=== PATIENT | female | born 1965 | race Caucasian/White ===

== ENCOUNTER → 2018-10-19 | Outpatient (CLI) | payer BC ==
[2018-10-19 13:19] VITALS: BP 111/74; PULSE 68; RESP 18; TEMP 98.4; BMI 26.2
--- NOTE | 2018-10-19 14:01 | P.GSHP ---
History of Present Illness H&P Date: 10/19/18 Chief Complaint: Lump right axilla Martina is a 52-year-old white female who presents for examination of the right axilla and breast. She had bilateral mammograms performed and July 2018 which revealed dense breast tissue BIRADS 2. Ultrasound of both breasts performed on the same day which again revealed dense heterogeneous echogenic tissue with a definite dominant mass or right unusual fluid collection. The recommendation was for repeat bilateral mammogram in one year. The nodularity is tender. It seems to fluctuate in size. She does not know what causes it it change in size. She has not had any fever or chills. She does not have any other enlarged nodes. She noticed this area because she was shaving under her arms. The patient drinks 1 pop per day. She additionally smokes at night. She is exposed to secondhand smoke. She is chocolate occasionally. Family History: none Hormonal history: menarche: 15 , breast fed: no, first born at 27 periods regular BCP: 5 years, tubal-ligation done 23 years ago hormones:none Surgical History: 1. tubal-ligation 2. knee arthroscopic Medial History: 1. rheumatoid arthritis Social History: smoke: at night alcohol: none drugs: none - Constitutional Constitutional: Denies chills, Denies fever - EENT Comment: wears glasses Eyes: denies blurred vision, denies pain Ears: deny: decreased hearing, tinnitus Ears, nose, mouth and throat: Denies headache, Denies sore throat - Breasts Breasts: bilateral: as per HPI - Cardiovascular Cardiovascular: Denies chest pain, Denies shortness of breath - Respiratory Respiratory: Denies cough, Denies 7 - Gastrointestinal Gastrointestinal: Denies abdominal pain, Denies diarrhea, Denies nausea, Denies vomiting - Genitourinary (Female) Genitourinary: Denies dysuria, Denies hematuria - Menstruation Comment: edilson-meopausal Menstruation: Reports period normal - Musculoskeletal Comment: arthritis - Integumentary Comment: inflamed node under right arm - Neurological Neurological: Denies numbness, Denies weakness - Psychiatric Psychiatric: Denies anxiety, Denies depression - Endocrine Endocrine: Reports weight change, Denies fatigue - Hematologic/Lymphatic Comment: none - Allergic/Immunologic Allergic/Immunologic: Reports as per HPI Past Medical History History of Any Multi-Drug Resistant Organisms: None Reported Smoking Status: Current some day smoker Medications and Allergies Home Medications Medication Instructions Recorded Confirmed Type No Known Home Medications 10/19/18 10/19/18 History Allergies Allergy/AdvReac Type Severity Reaction Status Date / Time codeine Allergy Rash/Hives Unverified 10/19/18 13:19 Penicillins Allergy Anaphylaxis Unverified 10/19/18 13:19 Surgical - Exam Vital Signs Temp Pulse Resp BP Pulse Ox 98.4 F 68 18 111/74 96 10/19/18 13:14 10/19/18 13:14 10/19/18 13:14 10/19/18 13:14 10/19/18 13:14 BMI 26.2 - General well developed, well nourished, no distress - Eyes normal ocular movement, no icteric - ENT no hearing loss, no congestion - Neck no masses, trachea midline - Respiratory normal respiratory effort, clear to auscultation - Cardiovascular Rhythm: regular Heart Sounds: normal: S1, S2 - Abdomen Abdomen: soft, non tender, no guarding, no rigid, no rebound - Integumentary inflamed area under right arm, no definite abscess, no area to drain at this time - Neurologic no disoriented, no combative - Musculoskeletal normal gait, normal posture - Psychiatric oriented to time, oriented to person, oriented to place, speech is normal, memory intact breast exam: right breast: Multi-positional exam very dense breast with fibrocystic changes no discrete dominant mass or nodule of concern Right axilla: In the hair follicles in the medial portion of the axillary line. Some increased tenderness with some palpable slight fullness just beneath the hair follicles I believe this is more related to an inflamed hair follicle/infection then adenopathy, no discrete adenopathy of concern appreciated Left breast: Multi-positional exam very dense breast with fibrocystic changes no discrete dominant mass or nodule is of concern Left axilla: No adenopathy of concern Results Mammogram and ultrasound reports from July 2018 reviewed Assessment and Plan Assessment: Impression: 1. Very dense breast 2. Fibrocystic breast changes 3. Right axillary folliculitis/fullness 4. Rheumatoid arthritis 5. ALLERGY penicillin and codeine 6. nicotine depndance Plan: 1. We will give the patient a trial of Bactrim and see the patient back in 1 week 2. Ultrasound of right axilla 3. Medical management of medical conditions 4. encouraged to stop smoking We will attempt a trial of Bactrim, if this does not resolve the situation with consider clindamycin. If the area persists and fullness may consider resection in the operating room. At this time we will get a ultrasound of the axilla to look for any deep adenopathy although none was palpable. I have encouraged the patient to stop smoking. C: Bunny
== END | disposition home or self-care (01) ==
LOC: WWCWWP 12:42
PROVIDERS: ATTEND Surgery
DX: Z53.9 Procedure and treatment not carried out, unspecified reason (principal)

== ENCOUNTER → 2018-10-24 | Outpatient (CLI) | payer BC ==
--- NOTE | 2018-10-25 08:27 | USB ---
Reason for exam: additional evaluation requested from abnormal screening. Physical Findings: Nurse Summary: Patient complains of right axilla lump x 5 months with intermittent pain (nurse mj). US Breast Workup Limited RT Right limited breast ultrasound including focal area of concern, retroareolar and axilla demonstrates a 0.8 x 0.9 x 0.3cm cystic lesion at 9 o'clock and a 1.0 x 1.1 x 0.6cm cystic lesion at 10 o'clock. No abnormality seen at axilla palpable. These results were verbally communicated with the patient and result sheet given to the patient on 10/24/18. ASSESSMENT: Benign, BI-RAD 2 RECOMMENDATION: Routine screening mammogram of both breasts in 10 months. Back on schedule for July 2019. Manage patient on a clinical basis.
== END ==
LOC: RADUSWWP 14:13
PROVIDERS: ATTEND Surgery
DX: R92.8 Other abnormal and inconclusive findings on diagnostic imaging of breast (principal)

== ENCOUNTER → 2018-10-27 | Outpatient (CLI) | payer BC ==
[2018-10-27 11:33] VITALS: BP 120/70; PULSE 66; RESP 16; TEMP 98.6; BMI 24.7
--- NOTE | 2018-10-27 11:53 | P.PN ---
Subjective Progress Note Date: 10/27/18 Martina is a 52-year-old white female who presents for examination of the right axilla and breast. She had bilateral mammograms performed July 2018 which revealed dense breast tissue BIRADS 2. Ultrasound of both breasts performed on the same day which again revealed dense heterogeneous echogenic tissue with no definite dominant mass or unusual fluid collection. The recommendation was for repeat bilateral mammogram in one year. The nodularity is tender. It seems to fluctuate in size. She does not know what causes it it change in size. She has not had any fever or chills. She does not have any other enlarged nodes. She noticed this area because she was shaving under her arms. The patient drinks 1 pop per day. She additionally smokes at night. She is exposed to secondhand smoke. She is chocolate occasionally. She was seen last week and startd on Bactrim. Ultrasound of the right axilla benign BIRAD 2, two cystic lesions in the breast. The area of concern under the right breast has resolved with Bactrim. She has no pain at this site now. There is very small area of nodularity. Family History: none Hormonal history: menarche: 15 , breast fed: no, first born at 27 periods regular BCP: 5 years, tubal-ligation done 23 years ago hormones:none Surgical History: 1. tubal-ligation 2. knee arthroscopic Medial History: 1. rheumatoid arthritis Social History: smoke: at night alcohol: none drugs: none - Constitutional Constitutional: Denies chills, Denies fever - EENT Comment: wears glasses Eyes: denies blurred vision, denies pain Ears: deny: decreased hearing, tinnitus Ears, nose, mouth and throat: Denies headache, Denies sore throat - Breasts Breasts: bilateral: as per HPI - Cardiovascular Cardiovascular: Denies chest pain, Denies shortness of breath - Respiratory Respiratory: Denies cough, Denies 7 - Gastrointestinal Gastrointestinal: Denies abdominal pain, Denies diarrhea, Denies nausea, Denies vomiting - Genitourinary (Female) Genitourinary: Denies dysuria, Denies hematuria - Menstruation Comment: edilson-meopausal Menstruation: Reports period normal - Musculoskeletal Comment: arthritis - Integumentary Comment: inflamed node under right arm - Neurological Neurological: Denies numbness, Denies weakness - Psychiatric Psychiatric: Denies anxiety, Denies depression - Endocrine Endocrine: Reports weight change, Denies fatigue - Hematologic/Lymphatic Comment: Objective - Vital Signs Vital signs: Vital Signs Temp 98.6 F 10/27/18 11:30 Pulse 66 10/27/18 11:30 Resp 16 10/27/18 11:30 BP 120/70 10/27/18 11:30 Pulse Ox 99 10/27/18 11:30 Intake & Output 10/26/18 10/27/18 10/27/18 18:59 06:59 18:59 Weight 63.503 kg - Exam BMI 24.8 - Constitutional General appearance: Present: average body habitus - EENT Eyes: Present: EOMI ENT: Present: hearing grossly normal - Respiratory Respiratory: bilateral: CTA - Cardiovascular Rhythm: regular Heart sounds: normal: S1, S2 - Integumentary Integumentary Comment(s): Right axilla: The area of tenderness has resolved and no palpable abnormality of concern is identified Assessment and Plan Assessment: Impression: 1. Ultrasound of right breast/axilla no lesions of concern 2. Very dense breast 3. Fibrocystic breast changes 4. Folliculitis seems to have resolved with antibiotic Area nicotine dependence 6. Rheumatoid arthritis 7. ALLERGY: Penicillin and codeine Plan: 1. The area of concern in the right axilla has resolved 2. Medical management of medical conditions 3. Continue to encourage to stop smoking 4. Patient due for bilateral mammogram in 10 months with physician exam at that time CC: DR. Gross
== END ==
LOC: WWCWWP 10:42
PROVIDERS: ATTEND Surgery
DX: Z53.9 Procedure and treatment not carried out, unspecified reason (principal)

== ENCOUNTER → 2019-08-27 | Outpatient (CLI) | payer BC ==
--- NOTE | 2019-08-29 09:24 | MM ---
Reason for exam: screening (asymptomatic). Last mammogram was performed 1 year ago. Physical Findings: A clinical breast exam by your physician is recommended on an annual basis and results should be correlated with mammographic findings. MG Screening Mammo w CAD Bilateral CC and MLO view(s) were taken. XCCL view(s) were taken of the left breast. Prior study comparison: August 16, 2018, mammogram, performed at [facility]. April 06, 2016, mammogram, performed at [facility]. The breast tissue is extremely dense which could obscure a lesion on mammography. Finding: There are increased, fine, grouped/clustered calcifications in the upper outer quadrant, middle position of the right breast. New finding since August 16, 2018 and April 06, 2016. ASSESSMENT: Incomplete: need additional imaging evaluation, BI-RAD 0 RECOMMENDATION: Special view mammogram of the right breast. [facility] will attempt to contact patient to return for supplemental views.
== END | disposition home or self-care (01) ==
LOC: RADMAMWWP 09:52
PROVIDERS: ATTEND Surgery
DX: Z12.31 Encounter for screening mammogram for malignant neoplasm of breast (principal)
CPT/HCPCS: 77067

== ENCOUNTER → 2019-08-31 | Outpatient (CLI) | payer BC ==
[2019-08-31 14:09] VITALS: BP 102/71; PULSE 64; RESP 18; TEMP 98
--- NOTE | 2019-08-31 14:42 | P.PN ---
Subjective Progress Note Date: 08/31/19 Principal diagnosis: abnormal mammogram right breast two sites 53-year-old white female who was initially seen in September 2018 with a complaint of some nodularity in the right axillary area. This has resolved. The patient had a bilateral mammogram performed on 7620. After the special views of the right [place] [address]. After review of these 2 areas of calcification were identified and stereotactic core biopsy of these 2 areas was recommended. The patient does not feel any lumps masses or nodules in her breasts. No nipple discharge. No recent history of trauma or infection in the breast. Caffeine: One pop per day Smoke: She smokes in the evening and is exposed to secondhand smoke Theophylline: Occasional Hormones: Negative Family History: none Hormonal history: menarche: 15 , breast fed: no, first born at 27 periods regular BCP: 5 years, tubal-ligation done 23 years ago hormones:none Surgical History: 1. tubal-ligation 2. knee arthroscopic Medial History: 1. rheumatoid arthritis Social History: smoke: at night alcohol: none drugs: none - Constitutional Constitutional: Denies chills, Denies fever - EENT Comment: wears glasses Eyes: denies blurred vision, denies pain Ears: deny: decreased hearing, tinnitus Ears, nose, mouth and throat: Denies headache, Denies sore throat - Breasts Breasts: bilateral: as per HPI - Cardiovascular Cardiovascular: Denies chest pain, Denies shortness of breath - Respiratory Respiratory: Denies cough, - Gastrointestinal Gastrointestinal: Denies abdominal pain, Denies diarrhea, Denies nausea, Denies vomiting - Genitourinary (Female) Genitourinary: Denies dysuria, Denies hematuria - Menstruation Comment: nlast menstral period two months ago Menstruation: Reports period normal - Musculoskeletal Comment: arthritis - Integumentary Comment: inflamed node under right arm resolved - Neurological Neurological: Denies numbness, Denies weakness - Psychiatric Psychiatric: Denies anxiety, Denies depression - Endocrine Endocrine: Reports weight change, Denies fatigue - Hematologic/Lymphatic Comment: none - Allergic/Immunologic Allergic/Immunologic: Reports as per HPI Objective - Vital Signs Vital signs: Vital Signs Temp 98.0 F 08/31/19 14:05 Pulse 64 08/31/19 14:05 Resp 18 08/31/19 14:05 BP 102/71 08/31/19 14:05 Pulse Ox 99 08/31/19 14:05 Intake & Output 08/30/19 08/31/19 08/31/19 18:59 06:59 18:59 Weight 65.771 kg - Constitutional General appearance: Present: average body habitus - EENT Eyes: Present: EOMI ENT: Present: hearing grossly normal - Neck Neck: Present: normal ROM - Respiratory Respiratory: bilateral: CTA - Cardiovascular Rhythm: regular Heart sounds: normal: S1, S2 - Gastrointestinal General gastrointestinal: Present: normal bowel sounds, soft - Integumentary Integumentary: Present: normal turgor - Musculoskeletal Musculoskeletal: Present: gait normal - Psychiatric Psychiatric: Present: A&O x's 3, appropriate affect, intact judgment & insight - Additional findings Additional findings: breast exam: BRA 36C inspection: ptosis grade 2/3 bilateral palpation: right breast: Multi-positional exam no dominant masses or nodules of concern, dense breast Right axilla: Shoddy adenopathy Left breast: Multi-positional exam no dominant masses or nodules of concern, dense breast Left axilla: No adenopathy of concern Assessment and Plan Assessment: Impression: 1. Fibrocystic breast changes 2. Right breast 2 areas of microcalcifications of concern 3. Resolved right axillary nodularity Plan: 1. Stereotactic core biopsy 2 areas of concern in the right breast Risk and benefits of procedure discussed with the patient she understands and wishes to proceed. Risks include but are not limited to bleeding, infection, reaction to the anesthetic. Additionally the possibility that the biopsy would be discordant would necessitate possible from biopsy in the operating room. Open biopsy in the operating room versus watchful waiting are discussed but not recommended. CC: DR. Bunny Chambers encounter 20 minutes, > 50% of time in planning and counselling
== END | disposition home or self-care (01) ==
LOC: WWCWWP 14:04
PROVIDERS: ATTEND Surgery
DX: Z53.9 Procedure and treatment not carried out, unspecified reason (principal)

== ENCOUNTER → 2019-08-31 | Outpatient (CLI) | payer BC ==
--- NOTE | 2019-09-03 08:01 | MM ---
Reason for exam: additional evaluation requested from abnormal screening. Last mammogram was performed less than 1 month ago. Physical Findings: Nurse did not find any significant physical abnormalities on exam. MG Work Up Mamm w CAD RT CC with magnification, ML with magnification, and ML view(s) were taken of the right breast. Prior study comparison: August 27, 2019, bilateral MG screening mammo w CAD. August 16, 2018, mammogram, performed at [facility]. The breast tissue is heterogeneously dense. This may lower the sensitivity of mammography. There are two groups of indeterminate calcifications upper outer right breast. These results were verbally communicated with the patient and result sheet given to the patient on 08/31/19. ASSESSMENT: Suspicious, BI-RAD 4 RECOMMENDATION: Stereotactic core biopsy of the right breast. (2 sites) Called office with mammographic findings and has scheduled an appointment for the patient for 08/31/19 at 2:[address] Montes. PRELIMINARY REPORT CALLED AND FAXED TO DR. MONTES ON 09/03/19.
== END | disposition home or self-care (01) ==
LOC: RADMAMWWP 13:02
PROVIDERS: ATTEND Surgery
DX: R92.8 Other abnormal and inconclusive findings on diagnostic imaging of breast (principal)
CPT/HCPCS: 77065

== ENCOUNTER → 2019-09-21 | Day surgery (SDC) | payer BC ==
[2019-09-21 07:31] VITALS: TEMP 98.1
--- NOTE | 2019-09-21 09:43 | P.PCN ---
Date of Procedure: 09/21/19 Preoperative Diagnosis: Mammographic abnormality right breast 2 lesions one anterior and one posterior calcifications of concern Postoperative Diagnosis: Same Procedure(s) Performed: Stereotactic core biopsy of 2 areas of concern in the right breast Anesthesia: local Surgeon: Keisha Montes Pathology: other (Breast tissue) Condition: stable Disposition: same day Indications for Procedure: Microcalcifications of concern at 2 sites in the right breast Operative Findings: Dense breast tissue specimens concordant with lesions Description of Procedure: The patient is a 53-year-old white female who on mammogram was noted to have 2 groups of indeterminate calcifications in the upper outer area of the right breast. Stereotactic core biopsy was recommended. It was felt that the posterior group should be addressed initially followed by the anterior group. Risk and benefits of the procedure were discussed with the patient and she wished to proceed. Risks include but are not limited to bleeding infection reaction to the anesthetic, inability to target the lesions are more that the lesions are not adequately sampled. She understood and wished to proceed. The patient was taken to stereotactic core biopsy room. She was placed on her abdomen on the low rad table. A staff training and development manager film was obtained. The lesions of concern were identified. The most posterior lesion was targeted initially. A CC from above approach was utilized. Both lesions were initially targeted. The most posterior lesion was approached first. The breast was prepped using Betadine. 12 mL of 1% lidocaine were used to anesthetize the area of concern. A 9-gauge vacuum-assisted core rotating biopsy needle was driven to the correct coordinates. The needle was fired. A post-fire film was obtained. The needle was felt to be too far to the right and the x coordinate was adjusted. Multiple core biopsies were obtained and radiograph of the specimen did not reveal the microcalcifications. The needle was withdrawn and a new apparatus was placed. Endoscope film was obtained. The posterior lesion was retargeted. The needle was driven to the correct location. Additional core biopsies were obtained. The area was lavaged. Radiograph of the specimen revealed the area of concern had been sampled. A secure ganesh marker was placed. Following this the anterior lesion was targeted. The skin was prepped using Betadine. An additional 12 mL of 1% lidocaine was used to anesthetize the area of concern. 9-gauge vacuum- assisted core rotating biopsy needle was driven to the correct coordinates. A prefire film was obtained and the needle appeared to be in the correct location. A post-fire film was then obtained after firing the needle. The needle appeared to be slightly to the right of the X location. A slight adjustment of X coordinate was performed. Multiple core biopsies were obtained. The area was lavaged. Radiograph of the specimen revealed that the lesion of concern had been sampled. To secure ganesh clips were placed for the anterior lesion. The patient tolerated the procedure in stable condition. The specimens were sent to pathology. Posterior lesion felt to be adequately sampled/radiograph showed calcifications/1 secure ganesh at this site Anterior lesion: Velarde to be adequately sampled/radiograph show calcifications/2 secure briones at this site The patient will follow-up with Dr. Zaidi next week. She tolerated the procedure in stable condition.
[2019-09-21 11:21] VITALS: BP 107/72; PULSE 56; RESP 56
--- NOTE | 2019-09-25 08:53 | MM ---
Stereotactic core biopsy right breast 2 cm. HISTORY: Microcalcifications. The calcifications in question within the right breast were targeted by the undersigned x2. The exam ination was performed by the surgeon. Specimen radiographs demonstrate numerous calcifications withi n the specimen submitted. Post procedural mammogram demonstrates appropriate deployment of radiopaqu e clip markers. The patient tolerated the procedure well and left the department in stable condition . Pathology results are pending. IMPRESSION: Successful stereotactic core biopsy right breast at 2 sites with pathology results pendin mely
== END ==
LOC: RADMAMWWP 07:08
PROVIDERS: ATTEND Surgery
DX: R92.1 Mammographic calcification found on diagnostic imaging of breast (principal); N60.11 Diffuse cystic mastopathy of right breast; N62 Hypertrophy of breast; R92.8 Other abnormal and inconclusive findings on diagnostic imaging of breast; Z88.5 Allergy status to narcotic agent; Z88.0 Allergy status to penicillin
CPT/HCPCS: 88305; 88342; 88341; 19081; 19082; A4648; J2001

== ENCOUNTER → 2019-09-28 | Outpatient (CLI) | payer BC ==
[2019-09-28 11:51] VITALS: BP 128/78; PULSE 75; RESP 18; TEMP 98.2
--- NOTE | 2019-09-28 12:11 | P.PN ---
Subjective Progress Note Date: 09/28/19 Principal diagnosis: Lobular carcinoma in situ Martina is a 53-year-old white female status post attempted to quit biopsy of 2 areas of concern in the right breast on 730 120. Biopsy of the anterior segment revealed lobular carcinoma in situ. The posterior site was benign. She is doing well. Objective - Vital Signs Vital signs: Vital Signs Temp 98.2 F 09/28/19 11:47 Pulse 75 09/28/19 11:47 Resp 18 09/28/19 11:47 BP 128/78 09/28/19 11:47 Pulse Ox 97 09/28/19 11:47 Intake & Output 09/27/19 09/28/19 09/28/19 18:59 06:59 18:59 Weight 65.771 kg - Exam BMI 25.7 - Constitutional General appearance: Present: average body habitus - EENT Eyes: Present: EOMI ENT: Present: hearing grossly normal - Neck Neck: Present: normal ROM - Respiratory Respiratory: bilateral: CTA - Cardiovascular Rhythm: regular Heart sounds: normal: S1, S2 - Gastrointestinal General gastrointestinal: Present: normal bowel sounds, soft - Integumentary Integumentary: Present: normal turgor - Musculoskeletal Musculoskeletal: Present: gait normal - Psychiatric Psychiatric: Present: A&O x's 3, appropriate affect, intact judgment & insight - Additional findings Additional findings: Right breast biopsy site: Evidence of infection or hematoma Mild ecchymosis Assessment and Plan Assessment: Impression: 1. Patient status post attempted core biopsy right breast in 2 sites, the posterior site is benign fibrocystic disease the anterior site is ALH/LCIS Plan: 1. Needle local excisional biopsy of the anterior stereotactic core biopsy site. The procedure will be via needle localization, probable crescent mastopexy, onco-plastic tissue transfer CC: DR. Gross encounter 25 minutes, > 50% of time in planning and counselling
== END | disposition home or self-care (01) ==
LOC: WWCWWP 11:40
PROVIDERS: ATTEND Surgery
DX: Z53.9 Procedure and treatment not carried out, unspecified reason (principal)

== ENCOUNTER → 2019-11-22 | Outpatient (CLI) | payer BC ==
[2019-11-22 09:10] VITALS: BP 114/75; PULSE 83; RESP 18; TEMP 98.1
--- NOTE | 2019-11-22 09:29 | P.GSHP ---
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 This has resolved. The patient had a bilateral mammogram performed on 7620. After the special views of the right [place] [address]. After review of these 2 areas of calcification were identified and stereotactic core biopsy of these 2 areas was recommended. The patient does not feel any lumps masses or nodules in her breasts. No nipple discharge. No recent history of trauma or infection in the breast. She underwent stereotactic core biopsy of 2 areas of concern in the right breast and [id number]. The posterior site revealed benign fibrocystic changes. The anterior site revealed lobular neoplasia, ALH/LCIS. It has been recommended that she undergo needle localization and excisional lumpectomy of the anterior site. Did not have any complaints following the stereotactic core biopsy. Caffeine: One pop per day Smoke: She smokes in the evening and is exposed to secondhand smoke Theophylline: Occasional Hormones: Negative Family History: none Hormonal history: menarche: 15 , breast fed: no, first born at 27 periods regular BCP: 5 years, tubal-ligation done 23 years ago hormones:none Surgical History: 1. tubal-ligation 2. knee arthroscopic Medial History: 1. rheumatoid arthritis Social History: smoke: at night alcohol: none drugs: none - Constitutional Constitutional: Denies chills, Denies fever - EENT Comment: wears glasses Eyes: denies blurred vision, denies pain Ears: deny: decreased hearing, tinnitus Ears, nose, mouth and throat: Denies headache, Denies sore throat - Breasts Breasts: bilateral: as per HPI - Cardiovascular Cardiovascular: Denies chest pain, Denies shortness of breath - Respiratory Respiratory: Denies cough, Denies 7 - Gastrointestinal Gastrointestinal: Denies abdominal pain, Denies diarrhea, Denies nausea, Denies vomiting - Genitourinary (Female) Genitourinary: Denies dysuria, Denies hematuria - Menstruation Menstruation: Reports postmenopausal - Musculoskeletal Comment: arthritis - Integumentary Integumentary: Denies pruritus, Denies rash - Neurological Neurological: Denies numbness, Denies weakness - Psychiatric Psychiatric: Denies anxiety, Denies depression - Endocrine Endocrine: Denies fatigue, Denies weight change - Hematologic/Lymphatic Comment: none - Allergic/Immunologic Allergic/Immunologic: Reports as per HPI Past Medical History Past Medical History: Rheumatoid Arthritis (RA) History of Any Multi-Drug Resistant Organisms: None Reported Past Surgical History: Orthopedic Surgery, Tubal Ligation Additional Past Surgical History / Comment(s): bilateral knee arthroscopy Past Anesthesia/Blood Transfusion Reactions: No Reported Reaction Past Psychological History: No Psychological Hx Reported Smoking Status: Current some day smoker Past Alcohol Use History: None Reported Past Drug Use History: None Reported Medications and Allergies Home Medications Medication Instructions Recorded Confirmed Type Multivit with Calcium,Iron,Min 1 each PO QAM 09/27/19 11/22/19 History [Women's Multivitamin] Allergies Allergy/AdvReac Type Severity Reaction Status Date / Time codeine Allergy Rash/Hives Unverified 11/22/19 09:10 Penicillins Allergy Anaphylaxis Unverified 11/22/19 09:10 Surgical - Exam Vital Signs Temp Pulse Resp BP Pulse Ox 98.1 F 83 18 114/75 97 11/22/19 09:07 11/22/19 09:07 11/22/19 09:07 11/22/19 09:07 11/22/19 09:07 BMI 26 - General well developed, well nourished, no distress - Eyes normal ocular movement - ENT no hearing loss, no congestion - Neck no masses, trachea midline - Respiratory normal respiratory effort, clear to auscultation - Cardiovascular Rhythm: regular Heart Sounds: normal: S1, S2 - Abdomen Abdomen: soft, non tender, no guarding, no rigid, no rebound - Integumentary normal turgor - Neurologic no disoriented, no combative - Musculoskeletal normal gait, normal posture - Psychiatric oriented to time, oriented to person, oriented to place, speech is normal, memory intact Breast exam: Bra: 34C inspection:grade 3 ptosis bilateral palpation: right breast: Multi-positional exam well-healed scars from prior stereo biopsy, no dominant masses or nodules of concern, fibrocystic changes Right axilla: No adenopathy of concern Left breast: Multiple positional exam fibrocystic changes, no dominant masses or nodules of concern Left axilla: No adenopathy of concern Results Bilateral mammogram and pathology results reviewed Assessment and Plan Assessment: Impression: 1. Fibrocystic breast changes 2. LCIS right breast anterior biopsy site 3. History of arthritis Plan: 1. Right breast needle localization lumpectomy of anterior stereotactic core biopsy site, possible mastopexy, possible onco plastic tissue transfer, any indicated procedures Risks and benefits of the procedure discussed with the patient and she understands and wishes to proceed. Cc: Dr. Hollis encounter 30 minutes, > 50% of time in planning and counselling
== END | disposition home or self-care (01) ==
LOC: WWCWWP 09:00
PROVIDERS: ATTEND Surgery
DX: Z53.9 Procedure and treatment not carried out, unspecified reason (principal)

== ENCOUNTER 2019-11-27 10:37 | Day surgery (SDC) | payer BC ==
[~2019-11-27 10:37] MED LIST: DEXAMETHASONE SOD PHOSPHATE 10 MG/ML 1 ML VIAL IV ONE; HEPARIN SODIUM,PORCINE 5,000 UNIT/ML 1 ML VIAL SQ ONE; LACTATED RINGERS 1,000 ML IV SCH; MIDAZOLAM 2 MG/2 ML VIAL IV PRN; ONDANSETRON 4 MG/2 ML VIAL IVP ONE; Pre Op ABX Message 1 EACH MISC MISCELLANE ONE; SCOPOLAMINE 1.5MG/72HR PATCH TRANSDERM ONE
[2019-11-27] MEDS ORDERED: LIDOCAINE 1% (10MG/ML) FOR IV START INTRADERMA ONE (11:09)
[2019-11-27] MEDS ORDERED: ALPRAZolam 0.5 MG TAB ONE (11:12)
[2019-11-27] MEDS ORDERED: ALPRAZolam 0.5 MG TAB PO ONE (11:14)
[2019-11-27] MEDS ORDERED: LIDOCAINE 1% INJ 10MG/ML (20 ML MDV) SQ ONE (11:35)
[2019-11-27] MEDS ORDERED: PROPOFOL 10 MG/ML 20 ML VIAL IV ONE (16:44)
[2019-11-27] MEDS ORDERED: MIDAZOLAM 2 MG/2 ML VIAL ONE (16:44)
[2019-11-27] MEDS ORDERED: LIDOCAINE 1% INJ 10MG/ML (20 ML MDV) ONE (16:44)
[2019-11-27] MEDS ORDERED: fentaNYL (PF) 50 MCG/ML 2 ML AMP ONE (16:44)
[2019-11-27] MEDS ORDERED: SUCCINYLCHOLINE CHLORIDE 100 MG/5 ML SYR IV ONE (16:44)
--- NOTE | 2019-11-27 17:50 | P.OP ---
Date of Procedure: 11/27/19 Preoperative Diagnosis: Breast right at 12:00 stereotactic core biopsy lesion atypical lobular hyperplasia/lobular carcinoma in situ Postoperative Diagnosis: Same Procedure(s) Performed: needle Localization lumpectomy, crescent mastopexy, oncho plastic tissue transfer Anesthesia: GETA Surgeon: Keisha Montes Estimated Blood Loss (ml): 5 IV fluids (ml): 850 Pathology: other (Dense breast tissue) Condition: stable Disposition: same day Indications for Procedure: core Biopsy with lobular carcinoma in situ Operative Findings: Dense breast tissue Description of Procedure: The patient is a 54-year-old white female who underwent a stereotactic core biopsy of the right breast. The anterior lesion revealed lobular carcinoma in situ and atypical lobular hyperplasia. She was recommended to undergo a needle local excisional lumpectomy. Following needle localization of the area of concern in the right breast the patient was marked in the preoperative area for the incision for removal which was a crescent mastopexy incision. She is brought to the operating room and following induction of anesthesia the right breast was prepped and draped in a sterile fashion. The area which had been m arked in the preoperative area was again delineated. The apex of the crescent was approximately 1-1/2 cm above the areolar. The skin in this area was de- epithelialized. The breast parenchyma was entered. The was identified and circumferential dissection of the tissue around the needle was performed. The specimen was painted for orientation. The wound was evaluated for hemostasis. After assured that hemostasis was attained medial and lateral pillars were free. The medial portal was approximately 7 x 4 cm which was 28 cm and the lateral pillar was approximately 6 x 4 cm which was 24 cm. Anterolateral 52 cm was freed. After assured that hemostasis was attained the 2 pillars were brought together using 3-0 Vicryl suture. The broad of the biopsy cavity was marked using titanium clips. One clip was medial and 3 clips superiorly. Following this the subcutaneous tissue was closed with 3-0 Vicryl suture. This is followed by 4-0 subcuticular 4-0 Ethibond suture and a 4-0 nylon skin suture. All instrument and sponge counts were correct at the end of the case. Patient tolerated the procedure in stable condition.
--- NOTE | 2019-11-27 17:54 | P.DS ---
Providers Attending physician: Keisha Montes Primary care physician: Lupe Gross Plan - Discharge Summary Discharge Rx Participant: No New Discharge Prescriptions: No Action Multivit with Calcium,Iron,Min [Women's Multivitamin] 1 each PO QAM Discharge Medication List Multivit with Calcium,Iron,Min [Women's Multivitamin] 1 each PO QAM 09/27/19 [History] Follow up Appointment(s)/Referral(s): Keisha Montes MD [STAFF PHYSICIAN] - 1 Week Activity/Diet/Wound Care/Special Instructions: Prescription for Gonvick given to in pre-op who will fill downstairs at pharmacy while patient in surgery, this is cancelled secondary to codeine allergy Discharge Disposition: HOME SELF-CARE
[2019-11-27] MEDS ORDERED: LACTATED RINGERS 1,000 ML IV ONE ×2 (18:30)
[2019-11-27] MEDS: fentaNYL (PF) 50 MCG/ML 2 ML AMP IV PRN ×2 (18:31→18:54)
[2019-11-27 19:08] VITALS: RESP 16
[2019-11-27 21:14] VITALS: BP 124/71; PULSE 97; TEMP 98
--- NOTE | 2019-11-28 08:18 | MM ---
EXAMINATION TYPE: MG pre op needle loc RT, MG surgical specimen RT DATE OF EXAM: 11/27/2019 COMPARISON: Prior mammograms September 21, 2019 and older studies. CLINICAL HISTORY: Recent High risk biopsy with ALH/LCIS. TECHNIQUE: Needle localization with wire placement and surgical excision of area of concern in the right breast. FINDINGS: The procedure of needle localization with wire placement and than surgical excision was explained to the patient. Benefits, alternatives, and risks were discussed. An informed consent was then obtained. Exam is reviewed. More anterior clip corresponds to area of concern on pathology. The shortest pathway for procedure was chosen. Shortest pathway was lateral approach. The overlying skin was prepped and draped in usual sterile fashion. Lidocaine is used as anesthetic into the skin and subcutaneous tissue up to the level of area of concern. A 7 cm needle was used. It was placed via a lateral approach under mammographic guidance. Subsequent 90 degrees mammogram show the needle to be in satisfactory position relative to the targeted area. At this point, wire was placed and the needle was withdrawn. The wire was fixed to patient's skin. Images were marked for surgeon. The patient tolerated the procedure well without any immediate complication. The patient was kept in the radiology department for short stay after the procedure and then taken to surgery for surgical excision. Targeted clip and wire are identified in specimen mammogram. The patient was kept in hospital for short stay after the procedure and then discharged home in stable condition. The nontargeted clip also seen in periphery of specimen. IMPRESSION: Successful, uncomplicated needle localization with wire placement and surgical excision of targeted clip in the right breast, full pathology results to follow. Pathology Results: Malignant RIGHT BREAST, LUMPECTOMY: Duct carcinoma in situ, intermediate grade less than 2 mm away from the black inked margin of resection in multiple portions of the specimen. Surrounding breast parenchyma: Fibrocystic spectrum changes with prior biopsy artifact. See note. Recommendation Surgical consult of the right breast. [place]
== END 2019-11-27 21:00 | disposition home or self-care (01) ==
LOC: OR 10:37 → 1SOBS 18:47 → OR 21:00
PROVIDERS: ATTEND Surgery
DX: D05.11 Intraductal carcinoma in situ of right breast (principal); N60.11 Diffuse cystic mastopathy of right breast; M06.9 Rheumatoid arthritis, unspecified; F17.210 Nicotine dependence, cigarettes, uncomplicated; Z88.5 Allergy status to narcotic agent; Z88.0 Allergy status to penicillin; Z98.51 Tubal ligation status; Z98.890 Other specified postprocedural states
CPT/HCPCS: 19301; 81025; 88342; 88307; 88341; 76098; 19281; J2250; J1644; J1100; J2405; J2001; J3010; J0330; J2704

== ENCOUNTER → 2019-12-06 | Outpatient (CLI) | payer BC ==
[2019-12-06 16:20] VITALS: BP 108/73; PULSE 67; RESP 12; TEMP 98.1
--- NOTE | 2019-12-06 16:26 | P.PN ---
Progress Note - Text Progress Note Date: 12/06/19 Martina is a 54 -year-old female who underwent a right breast needle local excisional lumpectomy for an area of atypical lobular hyperplasia. Pathology came back as ductal carcinoma in situ which was less than 2 mm away from the black inked margin of resection and multiple portions of the specimen. This was the superior margin. Patient has done well postoperatively. The lesion is ER/NH positive physical exam: Lungs: Clear Heart: Regular rate and rhythm Incision: Clean and dry Impression: 1. Excisional biopsy positive for DCIS, less than 2 mm from black inked margin of resection of multiple portions of the specimen Plan: 1. Reexcision of superior margin 2. Appointment with radiation oncology and medical oncology 2. Present case at tumor board CC: Dr. Gross
== END | disposition home or self-care (01) ==
LOC: WWCWWP 15:52
PROVIDERS: ATTEND Surgery
DX: Z53.9 Procedure and treatment not carried out, unspecified reason (principal)

== ENCOUNTER 2019-12-25 06:21 | Day surgery (SDC) | payer BC ==
--- NOTE | 2019-12-21 08:42 | P.PN ---
Subjective Progress Note Date: 12/21/19 Principal diagnosis: Ductal carcinoma in situ right breast Martina is a 53-year-old white female who was initially seen in September 2018 with a complaint of some nodularity in the right axillary area. This has resolved. The patient had a bilateral mammogram performed on 7620. After the special views of the right [place] [address]. After review of these 2 areas of calcification were identified and stereotactic core biopsy of these 2 areas was recommended. The patient does not feel any lumps masses or nodules in her breasts. No nipple discharge. No recent history of trauma or infection in the breast. She underwent stereotactic core biopsy of 2 areas of concern in the right breast and [id number]. The posterior site revealed benign fibrocystic changes. The anterior site revealed lobular neoplasia, ALH/LCIS. It has been recommended that she undergo needle localization and excisional lumpectomy of the anterior site. Did not have any complaints following the stereotactic core biopsy. She underwent needle localization and excisional biopsy for the area of atypical lobular hyperplasia. Pathology returned as ductal carcinoma in situ which was less than 2 mm from the superior resection margin. This was noted in multiple portions of the specimen. Although the margin was negative it was very close. The case was presented at tumor Board and she was seen by radiation oncology. Recommendation was for repeat excision of the superior margin. Additionally we discussed the possibility of an invasive component and the patient wished to undergo a sentinel node biopsy. Caffeine: One pop per day Smoke: She smokes in the evening and is exposed to secondhand smoke Theophylline: Occasional Hormones: Negative Family History: none Hormonal history: menarche: 15 , breast fed: no, first born at 27 periods regular BCP: 5 years, tubal-ligation done 23 years ago hormones:none Surgical History: 1. tubal-ligation 2. knee arthroscopic Medial History: 1. rheumatoid arthritis Social History: smoke: at night alcohol: none drugs: none - Constitutional Constitutional: Denies chills, Denies fever - EENT Comment: wears glasses Eyes: denies blurred vision, denies pain Ears: deny: decreased hearing, tinnitus Ears, nose, mouth and throat: Denies headache, Denies sore throat - Breasts Breasts: bilateral: as per HPI - Cardiovascular Cardiovascular: Denies chest pain, Denies shortness of breath - Respiratory Respiratory: Denies cough, - Gastrointestinal Gastrointestinal: Denies abdominal pain, Denies diarrhea, Denies nausea, Denies vomiting - Genitourinary (Female) Genitourinary: Denies dysuria, Denies hematuria - Menstruation Menstruation: Reports postmenopausal - Musculoskeletal Comment: arthritis - Integumentary Integumentary: Denies pruritus, Denies rash - Neurological Neurological: Denies numbness, Denies weakness - Psychiatric Psychiatric: Denies anxiety, Denies depression - Endocrine Endocrine: Denies fatigue, Denies weight change - Hematologic/Lymphatic Comment: none - Allergic/Immunologic Allergic/Immunologic: Reports as per HPI Objective - Constitutional General appearance: Present: average body habitus - EENT Eyes: Present: EOMI ENT: Present: hearing grossly normal - Neck Neck: Present: normal ROM - Respiratory Respiratory: bilateral: CTA - Cardiovascular Rhythm: regular Heart sounds: normal: S1, S2 - Gastrointestinal General gastrointestinal: Present: soft - Integumentary Integumentary Comment(s): Incision: Clean and dry Integumentary: Present: normal turgor - Musculoskeletal Musculoskeletal: Present: gait normal - Psychiatric Psychiatric: Present: A&O x's 3, appropriate affect, intact judgment & insight Assessment and Plan Assessment: Impression: 1. Excisional biopsy right breast positive for DCIS less than 2 mm from black inked margin of resection of multiple portions of the specimen Plan: 1. Reexcision of superior margin 2. Poteet node injection, sentinel node biopsy, possible axillary node dissection Risk and benefits of the procedure were discussed with the patient. She understands that this may not be any residual tumor however with multiple sites showing very close proximity to the superior margin and after presentation at tumor board has been recommended reexcision be performed. We also discussed sentinel node biopsy and secondary to the multiple sites she wishes sentinel node biopsy to be performed. Risks include but are not limited to bleeding, infection, reaction to the anesthetic. She understands this margin toward to be positive she may need additional surgery. CC: Dr. Gross
[2019-12-24 10:11] VITALS: BMI 25.8
[~2019-12-25 06:21] MED LIST changes: -DEXAMETHASONE SOD PHOSPHATE 10 MG/ML 1 ML VIAL IV ONE; +DEXAMETHASONE SOD PHOSPHATE 4 MG/ML 1 ML VIAL IV ONE; +fentaNYL (PF) 50 MCG/ML 2 ML AMP IV PRN
[2019-12-25] MEDS ORDERED: LIDOCAINE 1% (10MG/ML) FOR IV START INTRADERMA ONE (07:00)
[2019-12-25] MEDS ORDERED: ALPRAZolam 0.5 MG TAB ONE (07:05)
[2019-12-25] MEDS ORDERED: ALPRAZolam 0.5 MG TAB PO ONE (07:06)
[2019-12-25] MEDS ORDERED: PROPOFOL 10 MG/ML 20 ML VIAL IV ONE (08:19)
[2019-12-25] MEDS ORDERED: fentaNYL (PF) 50 MCG/ML 2 ML AMP ONE (08:19)
[2019-12-25] MEDS ORDERED: MIDAZOLAM 2 MG/2 ML VIAL ONE (08:19)
[2019-12-25] MEDS ORDERED: KETOROLAC 15 MG/ML 1 ML VIAL ONE (08:19)
[2019-12-25] MEDS ORDERED: ePHEDrine SULFATE/0.9% NACL/PF 50 MG/5 ML SYRINGE IV ONE (08:19)
[2019-12-25] MEDS ORDERED: PHENYLEPHRINE-0.9% NACL SYG 1 MG/10 ML SYRINGE ONE (08:19)
[2019-12-25] MEDS ORDERED: SUCCINYLCHOLINE CHLORIDE 100 MG/5 ML SYR IV ONE (08:19)
[2019-12-25] MEDS ORDERED: LIDOCAINE 1% INJ 10MG/ML (20 ML MDV) ONE (08:19)
--- NOTE | 2019-12-25 08:35 | NM ---
EXAMINATION TYPE: NM sentinel node injection DATE OF EXAM: 12/25/2019 COMPARISON: 11/27/2019 HISTORY: 54-year-old female right breast cancer, scheduled for reexcision of the superior margin. TECHNIQUE AND FINDINGS: The procedure of sentinel lymph node injection was explained to the patient. The benefits, alternatives, and risks were discussed. An informed consent was then obtained. Overlying skin is cleaned with sterile alcohol. Following this, 553 uCi Tc99m Tilmanocept was inject ed in the upper outer aspect of the right nipple intradermally. The patient tolerated the procedure well without any immediate complication. The patient was kept in the radiology department for short stay after the procedure and then taken to surgery for surgical p rocedure what is presumed intraoperative gamma probe will be used for sentinel lymph node detection. IMPRESSION: Right breast radiotracer injection for sentinel node localization as above.
--- NOTE | 2019-12-25 08:54 | P.NAPBC ---
NAPBC Queries - NAPBC Queries Was patient's case review presented at [facility] tumor board? If no, comment.: Yes Was patient's pathology reviewed at [facility]? If no, comment.: Yes Was breast conservation surgery offered? If no, comment.: Yes Was sentinel node biopsy offered? If no, comment.: Yes Was diagnosis confirmed by percutaneous core biopsy? If no, comment.: No (biopsy of atypia on core lead to diagnosis) Is patient mastectomy patient?: No Was a preop referral to reconstructive surgeon offered?: No Clinical Stage: stage 0
--- NOTE | 2019-12-25 10:21 | P.OP ---
Date of Procedure: 12/25/19 Preoperative Diagnosis: Ductal carcinoma in situ with multiple areas less than 2 mm from the superior margin of lumpectomy cavity Postoperative Diagnosis: Same Procedure(s) Performed: [place] node biopsy, reexcision of superior margin of lumpectomy cavity Anesthesia: AMISHAA Surgeon: Keisha Montes Estimated Blood Loss (ml): 10 IV fluids (ml): 700 Pathology: other (Be[place] lymph node, breast tissue) Condition: stable Disposition: same day Indications for Procedure: Needle localization partial mastectomy for atypia which revealed ductal carcinoma in situ with close margins at the superior aspect Operative Findings: Dense breast tissue Description of Procedure: Martina is a 54-year-old patient female who underwent a needle localization partial mastectomy for atypia. The pathology revealed ductal carcinoma in situ with multiple areas less than 2 mm from the superior margin. Her case was presented at tumor Board and it was recommended she undergo reexcision of the superior margin. Additionally secondary to the multifocal nature sentinel node biopsy was discussed with the patient and she wished this to be performed in the event that there should be an invasive component identified. The patient was brought to the operating room and the axilla was interrogated. Lymphokine had been injected by radiology. The area was noted to be radioactive and following this the breast and axilla were prepped and draped in a sterile fashion. An incision was made in the axilla and carried down to the area of increased radioactivity. This was a axillary lymph node. Using the Harmonic scalpel this lymph node was excised. The 10 second count on the lymph node was 17,275 and the background count was 18. After assured that hemostasis was attained, the deep tissues were closed using 3-0 Vicryl suture. This was followed by closure of the skin with a 4-0 Monocryl. Following this the area of the breast was approached. The prior crescent mastopexy incision was reopened. This was followed superiorly to the area where the cavity had been resected and the tissue closed. A small cavity was noted and this area was opened. The carlos had been placed superiorly 1-year-old and these were identified. The superior aspect of the cavity was reexcised. A portion of tissue was removed from the medial aspect of the cavity removing the carlos from this area as well. Patient was examined for hemostasis. After assured that hemostasis was attained Surgicel and pelvis on was placed. Two titanium clips were placed superiorly and one medial. The specimen was painted for hemostasis. The cavity which was reexcised was approximately 5 cm x 2 cm. The deep tissues were closed using 3-0 Vicryl suture. This is followed by closure of the subcutaneous tissue with 3-0 Vicryl suture and closure of the skin with a 4-0 Monocryl followed by 4-0 nylon suture. The patient tolerated procedure in stable condition. All instrument and sponge counts were correct at the end of the case.
--- NOTE | 2019-12-25 10:24 | P.DS ---
Providers Attending physician: Keisha Montes Primary care physician: Lupe Gross Plan - Discharge Summary Discharge Rx Participant: Yes New Discharge Prescriptions: No Action Multivit with Calcium,Iron,Min [Women's Multivitamin] 1 each PO QAM Discharge Medication List Multivit with Calcium,Iron,Min [Women's Multivitamin] 1 each PO QAM 09/27/19 [History] Follow up Appointment(s)/Referral(s): Keisha Montes MD [STAFF PHYSICIAN] - 1 Week Patient Instructions/Handouts: *Surgery [facility] - Scopalamine Patch Instructions Activity/Diet/Wound Care/Special Instructions: do not drive for 24 hours after discharge may shower after 48 hours wear bra at all times Discharge Disposition: HOME SELF-CARE
[2019-12-25] MEDS ORDERED: LACTATED RINGERS 1,000 ML IV ONE (10:27)
[2019-12-25 10:40] VITALS: TEMP 97.1
[2019-12-25 11:24] VITALS: RESP 18
[2019-12-25] MEDS ORDERED: HYDROcodone/APAP 5-325MG 1 EACH TAB ONE (11:41)
[2019-12-25] MEDS ORDERED: HYDROcodone/APAP 5-325MG 1 EACH TAB PO ONE (11:47)
[2019-12-25 11:53] VITALS: BP 103/57; PULSE 77
== END 2019-12-25 12:39 | disposition home or self-care (01) ==
LOC: OR 06:21
PROVIDERS: ATTEND Surgery
DX: N60.11 Diffuse cystic mastopathy of right breast (principal); N60.91 Unspecified benign mammary dysplasia of right breast; C50.911 Malignant neoplasm of unspecified site of right female breast; F17.210 Nicotine dependence, cigarettes, uncomplicated; Z77.22 Contact with and (suspected) exposure to environmental tobacco smoke (acute) (chronic); M06.9 Rheumatoid arthritis, unspecified; K21.9 Gastro-esophageal reflux disease without esophagitis; Z98.51 Tubal ligation status; Z98.890 Other specified postprocedural states; Z88.5 Allergy status to narcotic agent; Z88.0 Allergy status to penicillin
CPT/HCPCS: 19301; 38525; 81025; 88342; 88307; 88341; 38792; A9520; J2250; J1644; J1100; J2405; J2001; J3010; J1885; J2370; J0330; J2704

== ENCOUNTER → 2020-01-04 | Outpatient (CLI) | payer BC ==
[2020-01-04 14:31] VITALS: BP 113/72; PULSE 81; RESP 18
--- NOTE | 2020-01-04 14:35 | P.PN ---
Progress Note - Text Progress Note Date: 01/04/20 Martina is a 54-year-old white female status post right breast lumpectomy on which revealed DCIS close to the superior margin of resection. She therefore underwent reexcision on . On reexcision of the DCIS was noted. She also had a sentinel node biopsy performed. Pierce node was negative for metastatic disease. The patient is doing well post procedure without complaints. Physical exam: Incision axilla clean and dry Incision periareolar region clean and dry Impression: 1. DCIS completely excised 2. Patient doing well postop Plan: 1. Follow-up radiation oncology 2. Follow-up medical oncology 3. Follow. In 3 months CC: Dr. Gross
== END | disposition home or self-care (01) ==
LOC: WWCWWP 14:12
PROVIDERS: ATTEND Surgery
DX: Z53.9 Procedure and treatment not carried out, unspecified reason (principal)

== ENCOUNTER → 2020-04-10 | Outpatient (CLI) | payer BC ==
[2020-04-10 15:45] VITALS: BP 125/77; PULSE 67; RESP 18; TEMP 98
--- NOTE | 2020-04-10 15:56 | P.PN ---
Subjective Progress Note Date: 04/10/20 Principal diagnosis: Stage 0 right breast cancer Martina is a 54-year-old white female who was initially seen in September 2018 with a complaint of some nodularity in the right axillary area. This resolved. The patient had a bilateral mammogram performed on 7620. Special views of the right [place] [address]. After review of these 2 areas of calcification were identified and stereotactic core biopsy of these 2 areas was recommended. The patient did not feel any lumps masses or nodules in her breasts. No nipple discharge. No recent history of trauma or infection in the breast. She underwent stereotactic core biopsy of 2 areas of concern in the right breast and [address]. The posterior site revealed benign fibrocystic changes. The anterior site revealed lobular neoplasia, ALH/LCIS. It has been recommended that she undergo needle localization and excisional lumpectomy of the anterior site. Did not have any complaints following the stereotactic core biopsy. The initial needle local resection was done on . [place] [address] underwent a reexcision and a sentinel node biopsy. Pathology at that time revealed no further DCIS but some atypia on the medial reexcision margin. A sentinel node biopsy was also removed which was negative for cancer. She did complete a course of radiation therapy. This was completed on 03/12/20. She was given a prescription for an anti estrogen agent, the patient has not started this yet. She does not feel any lumps masses or nodules of concern in either breast. She is concerned about the fact that her right nipple areolar complex are higher than her left nipple areolar complex, it is difficult for her to find close to fit correctly. 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 Caffeine: One pop per day Smoke: She smokes in the evening and is exposed to secondhand smoke Theophylline: Occasional Hormones: Negative Family History: none Hormonal history: menarche: 15 , breast fed: no, first born at 27 periods regular BCP: 5 years, tubal-ligation done 23 years ago hormones:none Surgical History: 1. tubal-ligation 2. knee arthroscopic Medial History: 1. rheumatoid arthritis Social History: smoke: at night alcohol: none drugs: none - Constitutional Constitutional: Denies chills, Denies fever - EENT Comment: wears glasses Eyes: denies blurred vision, denies pain Ears: deny: decreased hearing, tinnitus Ears, nose, mouth and throat: Denies headache, Denies sore throat - Breasts Breasts: bilateral: as per HPI - Cardiovascular Cardiovascular: Denies chest pain, Denies shortness of breath - Respiratory Respiratory: Denies cough - Gastrointestinal Gastrointestinal: Denies abdominal pain, Denies diarrhea, Denies nausea, Denies vomiting - Genitourinary (Female) Genitourinary: Denies dysuria, Denies hematuria - Menstruation Menstruation: Reports postmenopausal - Musculoskeletal Comment: arthritis - Integumentary Integumentary: Denies pruritus, Denies rash - Neurological Neurological: Denies numbness, Denies weakness - Psychiatric Psychiatric: Denies anxiety, Denies depression - Endocrine Endocrine: Denies fatigue, Denies weight change - Hematologic/Lymphatic Comment: none - Allergic/Immunologic Allergic/Immunologic: Reports as per HPI Objective - Exam BMI 26.2 - Constitutional General appearance: Present: average body habitus - EENT Eyes: Present: EOMI ENT: Present: hearing grossly normal - Neck Neck: Present: normal ROM - Respiratory Respiratory: bilateral: CTA - Cardiovascular Rhythm: regular Heart sounds: normal: S1, S2 - Gastrointestinal General gastrointestinal: Present: normal bowel sounds, soft - Integumentary Integumentary: Present: normal turgor - Musculoskeletal Musculoskeletal: Present: gait normal - Psychiatric Psychiatric: Present: A&O x's 3, appropriate affect - Additional findings Additional findings: breast: BRA: medium sports bra inspection: Asymmetry of the breast related to prior right breast lumpectomy, right nipple complex grade 2 ptosis left nipple complex grade 3 ptosis Palpation: Right breast: Radiation changes dense breast tissue no discrete dominant masses or nodules of concern Right axilla: No adenopathy of concern Left breast: Multi-positional exam increased nodularity upper outer quadrant region Left axilla: No adenopathy of concern Assessment and Plan Assessment: Impression: 1. Patient status post lumpectomy and radiation therapy for right breast ductal carcinoma in situ this was done 12-25-19, radiation completed on 03/12/2020. 2. Last bilateral mammogram was in August 2019, at this time patient does have increased nodularity in the upper quadrant of the left breast with recommend a left breast mammogram 3. Left breast ultrasound of the area of increased palpable abnormality 4. Possible left breast core biopsy 5. After workup of the left breast the patient wishes for a symmetry procedure to be performed secondary to the change in symmetry of the areolar complexes related to surgery for the ductal carcinoma in situ. Plan: 1. Left breast mammogram 2. Left breast ultrasound 3. Left breast core biopsy 5. Consider MRI 6. After workup of the left breast and left breast mastopexy to be performed Cc: Dr. Gross Encounter 25 minutes, time spent in reviewing medical records, physical examination, and counseling.
== END | disposition home or self-care (01) ==
LOC: WWCWWP 15:35
PROVIDERS: ATTEND Surgery
DX: Z53.9 Procedure and treatment not carried out, unspecified reason (principal)

== ENCOUNTER → 2020-04-30 | Outpatient (CLI) | payer BC ==
--- NOTE | 2020-04-30 08:38 | MM ---
Reason for exam: clinical finding. Last mammogram was performed 8 months ago. History: Patient has history of breast cancer at age 54 and has history of high-risk lesion on a previous biopsy at age 53. Malignant MG pre op needle loc RT of the right breast, November 27, 2019. Lumpectomy of the right breast, November 27, 2019. High risk MG stereo VAD BX addl RT of the right breast, September 21, 2019. Benign MG stereo VAD BX RT of the right breast, September 21, 2019. Taking antineoplastic beginning at age 54. Physical Findings: Nurse did not find any significant physical abnormalities on exam. MG Diagnostic Mammo LT w CAD CC and MLO view(s) were taken of the left breast. Prior study comparison: August 31, 2019, right breast MG work up mamm w CAD RT. August 27, 2019, bilateral MG screening mammo w CAD. October 24, 2018, right breast US breast limited RT. April 06, 2016, mammogram, performed at [facility]. The breast tissue is heterogeneously dense. This may lower the sensitivity of mammography. Skin marker at area of interest upper outer quadrant. No significant new findings when compared with previous films. These results were verbally communicated with the patient and result sheet given to the patient on 04/30/20. ASSESSMENT: Incomplete: need additional imaging evaluation, BI-RAD 0 RECOMMENDATION: Ultrasound of the left breast.
--- NOTE | 2020-04-30 08:39 | USB ---
Reason for exam: additional evaluation requested from abnormal screening. History: Patient has history of breast cancer at age 54 and has history of high-risk lesion on a previous biopsy at age 53. Malignant MG pre op needle loc RT of the right breast, November 27, 2019. Lumpectomy of the right breast, November 27, 2019. High risk MG stereo VAD BX addl RT of the right breast, September 21, 2019. Benign MG stereo VAD BX RT of the right breast, September 21, 2019. Taking antineoplastic beginning at age 54. US Breast LT Technologist: Carla Moore Left complete breast ultrasound includes all four quadrants, the retroareolar region and axilla. Finding demonstrates no cystic or solid lesion seen. Dense tissues at the upper outer quadrant palpable area. Patient with right lumpectomy in December 2019. These results were verbally communicated with the patient and result sheet given to the patient on 04/30/20. ASSESSMENT: Benign, BI-RAD 2 RECOMMENDATION: Follow-up diagnostic mammogram of both breasts in 6 months. Manage on a clinical basis with regard to any suspicious palpable.
== END | disposition home or self-care (01) ==
LOC: RADMAMWWP 07:02
PROVIDERS: ATTEND Surgery
DX: N63.21 Unspecified lump in the left breast, upper outer quadrant (principal); R92.8 Other abnormal and inconclusive findings on diagnostic imaging of breast
CPT/HCPCS: 77065

== ENCOUNTER → 2020-05-08 | Outpatient (CLI) | payer BC ==
[2020-05-08 15:04] VITALS: BP 117/74; PULSE 80; RESP 16; TEMP 98.4
--- NOTE | 2020-05-08 15:42 | P.PN ---
Subjective Progress Note Date: 05/08/20 Principal diagnosis: Asymmetry of the breasts secondary to cancer surgery in the right breast Stage 0 right breast cancer Martina is a 54-year-old white female who was initially seen in September 2018 with a complaint of some nodularity in the right axillary area. This resolved. The patient had a bilateral mammogram performed on 7620. Special views of the right [place] [address]. After review of these 2 areas of calcification were identified and stereotactic core biopsy of these 2 areas was recommended. The patient did not feel any lumps masses or nodules in her breasts. No nipple discharge. No recent history of trauma or infection in the breast. She underwent stereotactic core biopsy of 2 areas of concern in the right breast and 26900. The posterior site revealed benign fibrocystic changes. The anterior site revealed lobular neoplasia, ALH/LCIS. It has been recommended that she undergo needle localization and excisional lumpectomy of the anterior site. Did not have any complaints following the stereotactic core biopsy. The initial needle local resection was done on . [place] [address] underwent a reexcision and a sentinel node biopsy. Pathology at that time revealed no further DCIS but some atypia on the medial reexcision margin. A sentinel node biopsy was also removed which was negative for cancer. She did complete a course of radiation therapy. This was completed on 03/12/20. She was given a prescription for an anti estrogen agent, the patient has not started this yet. This is tamoxifen. She had blood work done which showed that she was premenopausal. A [place] breast [place] [address]. These were felt to be benign BIRADS 2 follow-up diagnostic mammogram of both breasts in 6 months time was recommended. She does not feel any lumps masses or nodules of concern in either breast. She is concerned about the fact that her right nipple areolar complex are higher than her left nipple areolar complex, it is difficult for her to find close to fit correctly. 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 Caffeine: One pop per day Smoke: She smokes in the evening and is exposed to secondhand smoke Theophylline: Occasional Hormones: Negative Family History: none Hormonal history: menarche: 15 , breast fed: no, first born at 27 periods regular BCP: 5 years, tubal-ligation done 23 years ago hormones:none Surgical History: 1. tubal-ligation 2. knee arthroscopic Medial History: 1. rheumatoid arthritis Social History: smoke: at night alcohol: none drugs: none - Constitutional Constitutional: Denies chills, Denies fever - EENT Comment: wears glasses Eyes: denies blurred vision, denies pain Ears: deny: decreased hearing, tinnitus Ears, nose, mouth and throat: Denies headache, Denies sore throat - Breasts Breasts: bilateral: as per HPI - Cardiovascular Cardiovascular: Denies chest pain, Denies shortness of breath - Respiratory Respiratory: Denies cough - Gastrointestinal Gastrointestinal: Denies abdominal pain, Denies diarrhea, Denies nausea, Denies vomiting - Genitourinary (Female) Genitourinary: Denies dysuria, Denies hematuria - Menstruation Menstruation: Reports postmenopausal - Musculoskeletal Comment: arthritis - Integumentary Integumentary: Denies pruritus, Denies rash - Neurological Neurological: Denies numbness, Denies weakness - Psychiatric Psychiatric: Denies anxiety, Denies depression - Endocrine Endocrine: Denies fatigue, Denies weight change - Hematologic/Lymphatic Comment: none - Allergic/Immunologic Allergic/Immunologic: Reports as per HPI Objective - Vital Signs Vital signs: Vital Signs Temp 98.4 F 05/08/20 15:02 Pulse 80 05/08/20 15:02 Resp 16 05/08/20 15:02 BP 117/74 05/08/20 15:02 Pulse Ox 98 05/08/20 15:02 Intake & Output 05/07/20 05/08/20 05/08/20 18:59 06:59 18:59 Weight 65.771 kg - Exam BMI 25.7 - Constitutional General appearance: Present: average body habitus - EENT Eyes: Present: EOMI ENT: Present: hearing grossly normal - Neck Neck: Present: normal ROM - Respiratory Respiratory: bilateral: CTA - Cardiovascular Rhythm: regular Heart sounds: normal: S1, S2 - Gastrointestinal General gastrointestinal: Present: soft - Integumentary Integumentary: Present: normal turgor - Musculoskeletal Musculoskeletal: Present: gait normal - Psychiatric Psychiatric: Present: A&O x's 3, appropriate affect, intact judgment & insight - Additional findings Additional findings: breast exam: BRA: medium sports bra/ 36B inspection: Grade 1 ptosis right breast/grade 2/3 ptosis left breast; the right nipple areolar complex is higher than the left nipple areolar complex there are well-healed scars related to prior surgery Palpation: Right breast: Multiple positional exam no dominant masses or nodules of concern, no evidence of recurrent cancer Right axilla: No adenopathy of concern Left breast: Multiple positional exam fibrocystic changes, mild persistant nodularity in the UOQ Left axilla: No adenopathy of concern Assessment and Plan Assessment: Impression: 1. Patient status post lumpectomy and radiation therapy for right breast DCIS and , radiation completed on 2. Last bilateral mammogram August 2019, patient had a left breast mammogram and ultrasound performed on will have bilateral mammogram in 6 months 3. Mild persistent nodularity in the upper outer quadrant region of the left breast near the 3 o'clock position recommend core biopsy Plan: 1. Left breast core biopsy 2. Left breast mastopexy after completion of workup CC: Dr. Gross encounter 20 minutes time spent in reviewing medical records, examination, and counselling.
== END ==
LOC: WWCWWP 14:37
PROVIDERS: ATTEND Surgery
DX: N63.21 Unspecified lump in the left breast, upper outer quadrant (principal); F17.200 Nicotine dependence, unspecified, uncomplicated; Z98.890 Other specified postprocedural states

== ENCOUNTER → 2020-05-09 | Outpatient (CLI) | payer BC ==
[2020-05-09 08:45] VITALS: BP 112/82; PULSE 67; RESP 18; TEMP 98
--- NOTE | 2020-05-09 09:22 | P.PCN ---
Date of Procedure: 05/09/20 Preoperative Diagnosis: Nodularity left breast approximately 3 o'clock position Postoperative Diagnosis: same Anesthesia: local Surgeon: Keisha Montes Pathology: other (breast tissue) Condition: stable Disposition: same day Indications for Procedure: Nodularity left breast 3 o'clock position Operative Findings: Dense breast tissue Description of Procedure: Risks and benefits of the procedure were discussed with the patient. She wished to proceed with a core biopsy of the area of palpable increased nodularity 3 o'clock position of the left breast. No radiographic correlate was noted. The area was prepped using Betadine. Approximately 5 mL of 1% lidocaine were used to anesthetize the area of concern. 15 blade needle was used to make a small donavan in the skin. A 20-gauge Bard sponge and fired core biopsy needle was inserted into the area of palpable abnormality. 3 specimens were obtained. Specimens were sent to pathology. Steri-Strip was applied to the incision in the breast. Patient tolerated the procedure in stable condition. Patient will follow up for results next week.
== END ==
LOC: WWCWWP 08:16
PROVIDERS: ATTEND Surgery
DX: N63.20 Unspecified lump in the left breast, unspecified quadrant (principal); F17.200 Nicotine dependence, unspecified, uncomplicated

== ENCOUNTER 2020-05-20 07:23 | Day surgery (SDC) | payer BC ==
[2020-05-16 15:11] VITALS: BMI 24.7
[~2020-05-20 07:23] MED LIST changes: +ALPRAZolam 0.5 MG TAB PO PRN; -HEPARIN SODIUM,PORCINE 5,000 UNIT/ML 1 ML VIAL SQ ONE; +HEPARIN SODIUM,PORCINE 5,000 UNIT/ML 1 ML VIAL SQ PRN; +HYDROmorphone 0.5 MG/0.5 ML SYRINGE IVP PRN; +LIDOCAINE 1% (10MG/ML) FOR IV START INTRADERMA PRN; -MIDAZOLAM 2 MG/2 ML VIAL IV PRN; -ONDANSETRON 4 MG/2 ML VIAL IVP ONE; -SCOPOLAMINE 1.5MG/72HR PATCH TRANSDERM ONE; -fentaNYL (PF) 50 MCG/ML 2 ML AMP IV PRN
[2020-05-20] MEDS ORDERED: ONDANSETRON 4 MG/2 ML VIAL ONE (08:13)
[2020-05-20] MEDS ORDERED: LIDOCAINE 1% INJ 10MG/ML (20 ML MDV) ONE (08:25)
[2020-05-20] MEDS ORDERED: PROPOFOL 10 MG/ML 20 ML VIAL IV ONE (08:25)
[2020-05-20] MEDS ORDERED: MIDAZOLAM 2 MG/2 ML VIAL ONE (08:25)
[2020-05-20] MEDS ORDERED: fentaNYL (PF) 50 MCG/ML 2 ML AMP ONE (08:25)
[2020-05-20] MEDS ORDERED: SUCCINYLCHOLINE CHLORIDE 100 MG/5 ML SYR IV ONE (08:25)
[2020-05-20] MEDS ORDERED: LIDOCAINE 1% INJ 10MG/ML (20 ML MDV) SQ ONE ×2 (09:27)
--- NOTE | 2020-05-20 09:39 | P.OP ---
Date of Procedure: 05/20/20 Preoperative Diagnosis: assymetry of the nipple areolar complex location after cancer surgery on the right breast Postoperative Diagnosis: same Procedure(s) Performed: Left breast mastopexy Anesthesia: ARCELIA Surgeon: Keisha Montes Estimated Blood Loss (ml): 5 IV fluids (ml): 500 Pathology: other (De-epithelialized skin left breast) Condition: stable Disposition: same day Indications for Procedure: Asymmetry of the nipple areolar complex on the left after right breast cancer surgery Operative Findings: Asymmetry of the nipple areolar complex on the left after cancer surgery on the right Description of Procedure: Martina is a 54-year-old white female status post cancer surgery in the right breast. She has asymmetry of the nipple areolar complex and is scheduled for a mastopexy procedure. In the preoperative area skin markings were made. Elevation of the nipple areolar complex to be approximately 3 cm. Following the skin markings the patient was brought to the operative suite. Following induction of anesthesia both breasts were prepped and draped in a sterile fashion. The left breast was then approached. The area which had been marked was de-epithelialized. Incision was made through the subcutaneous tissue into the area of the breast parenchyma. The Vicryl suture was used to close this incision. This was followed by closure with a running 4-0 Monocryl. A nylon skin suture was then placed. Comparison with the contralateral side revealed this to be in the correct location. 9 mL of 1% lidocaine was injected into the area of concern. Sterile dressing was applied. A surgical bra was placed. The patient tolerated the procedure in stable condition. All instrument and sponge counts were correct at the end of the case.
--- NOTE | 2020-05-20 09:42 | P.DS ---
Providers Attending physician: Keisha Montes Primary care physician: Lupe Gross Plan - Discharge Summary Discharge Rx Participant: No New Discharge Prescriptions: No Action Multivit with Calcium,Iron,Min [Women's Multivitamin] 1 each PO QAM Tamoxifen [Nolvadex] 20 mg PO DAILY Discharge Medication List Multivit with Calcium,Iron,Min [Women's Multivitamin] 1 each PO QAM 09/27/19 [History] Tamoxifen [Nolvadex] 20 mg PO DAILY 04/10/20 [History] Follow up Appointment(s)/Referral(s): Keisha Montes MD [STAFF PHYSICIAN] - 1 Week Activity/Diet/Wound Care/Special Instructions: do not drive today or if taking narcotic pain medication wear bra at all times may shower after 48 hours Discharge Disposition: HOME SELF-CARE
[2020-05-20 09:53] VITALS: TEMP 97
[2020-05-20 10:00] VITALS: RESP 16
[2020-05-20] MEDS ORDERED: HYDROcodone/APAP 5-325MG 1 EACH TAB PO ONE (11:00)
[2020-05-20] MEDS ORDERED: HYDROcodone/APAP 5-325MG 1 EACH TAB ONE (11:02)
[2020-05-20 11:22] VITALS: BP 112/64; PULSE 64
== END 2020-05-20 11:43 | disposition home or self-care (01) ==
LOC: OR 07:23
PROVIDERS: ATTEND Surgery
DX: N64.89 Other specified disorders of breast (principal); L08.9 Local infection of the skin and subcutaneous tissue, unspecified; D05.11 Intraductal carcinoma in situ of right breast; N60.11 Diffuse cystic mastopathy of right breast; N64.81 Ptosis of breast; N60.12 Diffuse cystic mastopathy of left breast; N63.21 Unspecified lump in the left breast, upper outer quadrant; F17.210 Nicotine dependence, cigarettes, uncomplicated; M06.9 Rheumatoid arthritis, unspecified; Z88.5 Allergy status to narcotic agent; Z88.0 Allergy status to penicillin; Z79.810 Long term (current) use of selective estrogen receptor modulators (SERMs); Z98.890 Other specified postprocedural states; Z92.3 Personal history of irradiation; Z77.22 Contact with and (suspected) exposure to environmental tobacco smoke (acute) (chronic); Z98.51 Tubal ligation status; Z97.3 Presence of spectacles and contact lenses; Z78.0 Asymptomatic menopausal state
CPT/HCPCS: 19316; 81025; 88305; J2250; J1644; J1100; J2405; J2001; J3010; J0330; J2704; J1170

== ENCOUNTER → 2020-06-05 | Outpatient (CLI) | payer BC ==
[2020-06-05 15:41] VITALS: BP 105/66; PULSE 78; RESP 18; TEMP 98.1
--- NOTE | 2020-06-05 15:52 | P.PN ---
Progress Note - Text Progress Note Date: 06/05/20 Martina is a 54 -year-old white female who underwent a symmetry procedure of the left breast secondary to asymmetry after a right breast lumpectomy. This was performed and [id number]. Post procedure she is doing well. A vertical examination: Lungs: Clear Heart: Regular rate and rhythm Incisions: Clean and dry Plan: Suture removal follow up with radiation oncology she is on hormonal therapy/tamoxifen, she is not having any complaints; she will follow up with medical oncology right breast mammogram in August 2020 with examination CC: Dr. Gross
== END ==
LOC: WWCWWP 15:27
PROVIDERS: ATTEND Surgery
DX: Z48.02 Encounter for removal of sutures (principal)

== ENCOUNTER → 2020-10-02 | Outpatient (CLI) | payer BC ==
--- NOTE | 2020-10-03 11:40 | MM ---
Reason for exam: follow-up at short interval from prior study. Last mammogram was performed 5 months ago. History: Patient is postmenopausal, has history of breast cancer at age 54, and has history of high-risk lesion on a previous biopsy at age 53. Malignant MG pre op needle loc RT of the right breast, November 27, 2019. Lumpectomy of the right breast, November 27, 2019. High risk MG stereo VAD BX addl RT of the right breast, September 21, 2019. Benign MG stereo VAD BX RT of the right breast, September 21, 2019. Breast lift of the left breast, 2019. Radiation therapy of the right breast. Taking antineoplastic beginning at age 54. Physical Findings: Nurse did not find any significant physical abnormalities on exam. MG Diagnostic Mammo w CAD VESTA Bilateral CC and MLO view(s) were taken. Prior study comparison: April 30, 2020, left breast MG diagnostic mammo LT w CAD. August 31, 2019, right breast MG work up mamm w CAD RT. August 16, 2018, mammogram, performed at [facility]. The breast tissue is heterogeneously dense. This may lower the sensitivity of mammography. Post surgical and post therapy change right breast. Follow up to assess for any evolving post therapy change. Left medial focal asymmetry disperses with an appearance similar to 2019. These results were verbally communicated with the patient and result sheet given to the patient on 10/02/20. ASSESSMENT: Probably benign, BI-RAD 3 RECOMMENDATION: Follow-up diagnostic mammogram of the right breast in 6 months.
== END | disposition home or self-care (01) ==
LOC: RADMAMWWP 15:01
PROVIDERS: ATTEND Surgery
DX: R92.2 Inconclusive mammogram (principal); Z85.3 Personal history of malignant neoplasm of breast
CPT/HCPCS: 77066

== ENCOUNTER → 2020-10-09 | Outpatient (CLI) | payer BC ==
--- NOTE | 2020-10-10 07:06 | XR ---
EXAMINATION TYPE: XR chest 2V DATE OF EXAM: 10/09/2020 COMPARISON: NONE HISTORY: Cough and congestion. TECHNIQUE: Frontal and lateral views of the chest are obtained. FINDINGS: There is no suspicious peripheral focal air space opacity, pleural effusion, or pneumothor ax seen. The cardiac silhouette size is within normal limits. The osseous structures are intact. S urgical clips overlie the right breast. IMPRESSION: No acute pulmonary process.
== END | disposition home or self-care (01) ==
LOC: RADXRMAIN 16:25
PROVIDERS: ATTEND Nurse Practitioner Family
DX: R09.89 Other specified symptoms and signs involving the circulatory and respiratory systems (principal)
CPT/HCPCS: 71046

== ENCOUNTER → 2020-10-16 | Outpatient (CLI) | payer BC ==
[2020-10-16 13:15] VITALS: BP 106/67; PULSE 80; RESP 18; TEMP 98.5
--- NOTE | 2020-10-16 13:48 | P.PN ---
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 She subsequently underwent a symmetry procedure on the left side. At this time she is doing well. She is not complaining of any lumps masses or nodules of concern in either breast. [place] [id number]. This was felt to be probably benign. BIRADS 3 and follow-up right breast mammogram in 6 months was recommended. She finished a course of radiation therapy in the right breast and continues to follow with radiation oncology. The last no from them is on [id number] and is reviewed. [place] from medical [place]ology [place] [id number]. She had been taking tamoxifen but was recently changed to exmestane secondary to her menopausal status. She is tolerating this without difficulty. Caffeine: One pop per day Smoke: She smokes in the evening and is exposed to secondhand smoke Theophylline: Occasional Hormones: Negative Family History: none Hormonal history: menarche: 15 , breast fed: no, first born at 27 periods regular BCP: 5 years, tubal-ligation done 23 years ago hormones:none Surgical History: 1. tubal-ligation 2. knee arthroscopic 3. bilateral bresat surgery, right lumpectomy and SNB and left symmetry procedure Medial History: 1. rheumatoid arthritis Social History: smoke: at night alcohol: none drugs: none - Constitutional Constitutional: Denies chills, Denies fever - EENT Comment: wears glasses Eyes: denies blurred vision, denies pain Ears: deny: decreased hearing, tinnitus Ears, nose, mouth and throat: Denies headache, Denies sore throat - Breasts Breasts: bilateral: as per HPI - Cardiovascular Cardiovascular: Denies chest pain, Denies shortness of breath - Respiratory Respiratory: Denies cough - Gastrointestinal Gastrointestinal: Denies abdominal pain, Denies diarrhea, Denies nausea, Denies vomiting - Genitourinary (Female) Genitourinary: Denies dysuria, Denies hematuria - Menstruation Menstruation: Reports postmenopausal - Musculoskeletal Comment: arthritis - Integumentary Integumentary: Denies pruritus, Denies rash - Neurological Neurological: Denies numbness, Denies weakness - Psychiatric Psychiatric: Denies anxiety, Denies depression - Endocrine Endocrine: Denies fatigue, Denies weight change - Hematologic/Lymphatic Comment: none - Allergic/Immunologic Allergic/Immunologic: Reports as per HPI Objective - Vital Signs Vital signs: Vital Signs Temp 98.5 F 10/16/20 13:12 Pulse 80 10/16/20 13:12 Resp 18 10/16/20 13:12 BP 106/67 10/16/20 13:12 Pulse Ox 97 10/16/20 13:12 Intake & Output 10/15/20 10/16/20 10/16/20 18:59 06:59 18:59 Weight 63.503 kg - Exam BMI 24.8 - Constitutional General appearance: Present: cooperative - EENT Eyes: Present: EOMI ENT: Present: hearing grossly normal - Neck Neck: Present: normal ROM - Respiratory Respiratory: bilateral: CTA - Cardiovascular Rhythm: regular Heart sounds: normal: S1, S2 - Gastrointestinal General gastrointestinal: Present: soft - Integumentary Integumentary: Present: normal turgor - Musculoskeletal Musculoskeletal: Present: gait normal - Psychiatric Psychiatric: Present: A&O x's 3, appropriate affect, intact judgment & insight - Additional findings Additional findings: Breast Exam: BRA: 36B inspection: well healed scars both breast Palpation: right breast: Positional exam fibrocystic changes, no dominant masses or nodules of concern Right axilla: No adenopathy of concern Left breast: Well-healed scar from a symmetry procedure, increased nodularity upper outer quadrant Left axilla: No adenopathy of concern Assessment and Plan Assessment: Impression: 1. Stage 0 right breast cancer 2. Repeat right breast mammogram in 6 months with physician exam at that time 3. Palpable nodularity left breast upper outer quadrant recommend ultrasound at this time Plan: 1. Ultrasound left breast area of palpable abnormality which is upper-outer quadrant 2. Repeat right breast mammogram in 6 months 3. Patient to follow up after ultrasound CC: Dr. Gross
== END ==
LOC: WWCWWP 13:06
PROVIDERS: ATTEND Surgery
DX: C50.911 Malignant neoplasm of unspecified site of right female breast (principal); N63.21 Unspecified lump in the left breast, upper outer quadrant; M06.9 Rheumatoid arthritis, unspecified; F17.200 Nicotine dependence, unspecified, uncomplicated; Z88.5 Allergy status to narcotic agent; Z88.0 Allergy status to penicillin; Z91.018 Allergy to other foods

== ENCOUNTER → 2020-10-20 | Outpatient (CLI) | payer BC ==
--- NOTE | 2020-10-21 10:24 | USB ---
Reason for exam: clinical finding. History: Patient is postmenopausal, has history of breast cancer at age 54, and has history of high-risk lesion on a previous biopsy at age 53. Malignant MG pre op needle loc RT of the right breast, November 27, 2019. Lumpectomy of the right breast, November 27, 2019. High risk MG stereo VAD BX addl RT of the right breast, September 21, 2019. Benign MG stereo VAD BX RT of the right breast, September 21, 2019. Breast lift of the left breast, 2019. Radiation therapy of the right breast. Taking antineoplastic beginning at age 54. Indicated problem(s): palpable abnormality in the left breast. Physical Findings: Nurse Summary: 0.5cm firm nodule, movable (nurse dw). US Breast Limited LT Left limited breast ultrasound including focal area of concern, retroareolar and axilla demonstrates dense tissue that extends to skin line at 1 o'clock, no focal mass seen. These results were verbally communicated with the patient and result sheet given to the patient on 10/20/20. ASSESSMENT: Probably benign, BI-RAD 3 RECOMMENDATION: Follow-up diagnostic mammogram and ultrasound of the left breast in 6 months. Manage patient on a clinical basis.
== END | disposition home or self-care (01) ==
LOC: RADUSWWP 14:56
PROVIDERS: ATTEND Surgery
DX: R92.8 Other abnormal and inconclusive findings on diagnostic imaging of breast (principal); Z78.0 Asymptomatic menopausal state; Z85.3 Personal history of malignant neoplasm of breast

== ENCOUNTER → 2021-04-24 | Outpatient (CLI) | payer BC ==
--- NOTE | 2021-04-24 15:14 | MM ---
Reason for exam: follow-up at short interval from prior study. Last mammogram was performed 7 months ago. History: Patient is postmenopausal, has history of breast cancer at age 54, and has history of high-risk lesion on a previous biopsy at age 53. Malignant MG pre op needle loc RT of the right breast, November 27, 2019. Lumpectomy of the right breast, November 27, 2019. High risk MG stereo VAD BX addl RT of the right breast, September 21, 2019. Benign MG stereo VAD BX RT of the right breast, September 21, 2019. Breast lift of the left breast, 2019. Radiation therapy of the right breast. Taking antineoplastic beginning at age 54. Physical Findings: A clinical breast exam by your physician is recommended on an annual basis and results should be correlated with mammographic findings. MG 3D Diag Mammo W/Cad VESTA Bilateral CC and MLO view(s) were taken. Prior study comparison: October 02, 2020, bilateral MG diagnostic mammo w CAD VESTA. April 30, 2020, left breast MG diagnostic mammo LT w CAD. The breast tissue is extremely dense which could obscure a lesion on mammography. Stable post lumpectomy changes right breast. No significant new findings when compared with previous films. These results were verbally communicated with the patient and result sheet given to the patient on 04/24/21. ASSESSMENT: Incomplete: need additional imaging evaluation, BI-RAD 0 RECOMMENDATION: Ultrasound of the left breast.
--- NOTE | 2021-04-24 15:16 | USB ---
Reason for exam: follow-up at short interval from prior study. History: Patient is postmenopausal, has history of breast cancer at age 54, and has history of high-risk lesion on a previous biopsy at age 53. Malignant MG pre op needle loc RT of the right breast, November 27, 2019. Lumpectomy of the right breast, November 27, 2019. High risk MG stereo VAD BX addl RT of the right breast, September 21, 2019. Benign MG stereo VAD BX RT of the right breast, September 21, 2019. Breast lift of the left breast, 2019. Radiation therapy of the right breast. Taking antineoplastic beginning at age 54. US Breast Limited LT Left limited breast ultrasound including focal area of concern, retroareolar and axilla demonstrates no cystic or solid lesion seen. Dense tissue. Scanned 12-3 o'clock. These results were verbally communicated with the patient and result sheet given to the patient on 04/24/21. ASSESSMENT: Negative, BI-RAD 1 RECOMMENDATION: Follow-up diagnostic mammogram of both breasts in 6 months.
== END | disposition home or self-care (01) ==
LOC: RADMAMWWP 13:48
PROVIDERS: ATTEND Surgery
DX: R92.8 Other abnormal and inconclusive findings on diagnostic imaging of breast (principal); Z85.3 Personal history of malignant neoplasm of breast; Z78.0 Asymptomatic menopausal state
CPT/HCPCS: 77062; 77066

== ENCOUNTER → 2021-06-26 | Outpatient (CLI) | payer BC ==
--- NOTE | 2021-06-26 15:51 | BD ---
EXAMINATION TYPE: Axial Bone Density DATE OF EXAM: 06/26/2021 COMPARISON: NONE CLINICAL HISTORY: 55 years year old Female. ICD-10 CODE: N95.1 MENOPAUSAL AND FEMALE CLIMACTERIC STA TE Height: 63 Weight: 148 FRAX RISK QUESTIONS: Alcohol (3 or more units per day): NO Family History (Parent hip fracture): NO Glucocorticoids (More than 3mos): NO (Ex: prednisone, prednisolone, methylprednisolone, dexamethasone, and hydrocortisone). History of Fracture in Adulthood: NO Secondary Osteoporosis: NO 1. Type 1 Diabetes: NO 2. Hyperthyroidism: NO 3. Menopause before 45: NO 4. Malnutrition: 5. Chronic liver disease: NO Rheumatoid Arthritis: YES Current Tobacco Use: YES RISK FACTORS HISTORY OF: Surgery to Spine/Hip(right/left)/Wrist (right/left): NO Family History of Osteoporosis: NO Active: YES Diet low in dairy products/other sources of calcium: NO Postmenopausal woman: YES Take estrogen and/or progesterone medications: NO Lost more than 2 inches in height since high school: NO Frequent falls: NO Poor Health: NO Hyperparathyroidism: NO Adrenal Insufficiency: NO MEDICATIONS: AROMASIN Additional History: BREAST CANCER 2019, NO CHEMO, YES RADIATION EXAM MEASUREMENTS: Bone mineral densitometry was performed using the [employer] System. Bone mineral density as measured about the Lumbar spine is: ----- L1-L4(G/cm2): 0.922 T Score Values are as follows: ----- L1: -1.9 ----- L2: -2.3 ----- L3: -2.1 ----- L4: -2.4 ----- L1-L4: -2.2 BASELINE Bone mineral density about the R hip (g/cm2): 0.751 Bone mineral density about the L hip (g/cm2): 0.775 T Score values are as follows: -----R Neck: -2.1 -----L Neck: -1.9 -----R Total: -2.3 -----L Total: -2.2 BASELINE FRAX%s: The graph provided illustrates a 10.0% chance for a major osteoporotic fx and a 2.4% chance f or the hips probability for fx in 10 years time. IMPRESSION: osteopenia NOTE: T-SCORE=SD OF THE YOUNG ADULT MEAN.
== END | disposition home or self-care (01) ==
LOC: RADBDWWP 14:48
PROVIDERS: ATTEND Obstetrics & Gynecology
DX: M85.89 Other specified disorders of bone density and structure, multiple sites (principal)
CPT/HCPCS: 77080

== ENCOUNTER → 2023-06-28 | Outpatient (CLI) | payer BC ==
--- NOTE | 2023-06-28 16:13 | BD ---
EXAMINATION TYPE: Axial Bone Density DATE OF EXAM: 06/28/2023 CLINICAL HISTORY: 57 years old Female. ICD-10 CODE: M85.88 DISORDER BONE Height: 63" Weight: 151lbs FRAX RISK QUESTIONS: Alcohol (3 or more units per day): No Family History (Parent hip fracture): No Glucocorticoids (More than 3mos): No (Ex: prednisone, prednisolone, methylprednisolone, dexamethasone, and hydrocortisone). History of Fracture in Adulthood: No Secondary Osteoporosis: 1. Type 1 Diabetes: No 2. Hyperthyroidism: No 3. Menopause before 45: No 4. Malnutrition: No 5. Chronic liver disease: No Rheumatoid Arthritis: No Current Tobacco Use: Yes RISK FACTORS HISTORY OF: Hip Fracture (Right/Left): No Spine Fracture: No History of Wrist Fracture: No Surgery to Spine/Hip(right/left)/Wrist (right/left): No MEDICATIONS: Thyroid Medications: No Osteoporosis Medications: Yes Which medication: Unknown name How Long: About 2 years EXAM MEASUREMENTS: Bone mineral densitometry was performed using the [employer] System. Bone mineral density as measured about the Lumbar spine is: ----- L1-L4(G/cm2): 0.889 T Score Values are as follows: ----- L1: -1.9 ----- L2: -2.3 ----- L3: -2.3 ----- L4: -3.2 ----- L1-L4: -2.4 Z Score Values are as follows: ----- L1: -1.2 ----- L2: -1.5 ----- L3: -1.6 ----- L4: -2.5 ----- L1-L4: -1.7 Bone mineral density has: decreased -3.6% since study of: 06/26/2021 Bone mineral density about the R hip (g/cm2): 07.02 Bone mineral density about the L hip (g/cm2): 0.759 T Score values are as follows: -----R Neck: -2.3 -----L Neck: -1.7 -----R Total: -2.4 -----L Total: -2.0 Z Score values are as follows: -----R Neck: -1.3 -----L Neck: -0.8 -----R Total: -1.8 -----L Total: -1.4 Bone mineral density has: increased 0.7% since study of: 06/26/2021 FRAX%s: The graph provided illustrates a 9.4% chance for a major osteoporotic fx and a 2.3% chance fo r the hips probability for fx in 10 years time. IMPRESSION: Osteoporosis (T Score less than -2.5). There is increased fracture risk and therapy is usually indicated based on age. Re-Screen 1-2 years. NOTE: T-SCORE=SD OF THE YOUNG ADULT MEAN.
--- NOTE | 2023-06-30 08:33 | MM ---
Reason for Exam: Screening (asymptomatic). Last mammogram was performed 1 year(s) and 2 month(s) ago. Patient History: Menarche at age 15. First Full-Term at age 27. Postmenopausal. Breast cancer, right, age 54. Previous chest radiation therapy at age 54. 11/27/2019, Lumpectomy on the Right side. 11/27/2019, Malignant Core Biopsy on the right side. 09/21/2019, High risk Core Biopsy on the right side. 09/21/2019, Benign Core Biopsy on the right side. Radiation Therapy, right. Prior Study Comparison: 10/02/2020 Bilateral Diagnostic Mammogram, [facility]. 04/24/2021 Bilateral Diagnostic Mammogram, [facility]. 04/26/2022 Bilateral MG diagnostic mammo w CAD [facility]STA, [facility]. Tissue Density: The breasts are extremely dense, which lowers the sensitivity of mammography. Findings: Analyzed By CAD. There is no suspicious group of microcalcifications or new suspicious mass in either breast. Postsurgical changes right breast with architectural distortion and surgical clips stable. Benign-appearing calcifications. Overall Assessment: Benign, BI-RAD 2 Management: Screening Mammogram of both breasts in 1 year. . Patient should continue monthly self-breast exams. A clinical breast exam by your physician is recommended on an annual basis. This exam should not preclude additional follow-up of suspicious palpable abnormalities. Note on Gisela scores and lifetime risk: 1. A Gisela score greater than 3% is considered moderate risk. If this is the case, consider specialist referral to assess eligibility for a risk reducing agent. 2. If overall lifetime risk for the development of breast cancer is 20% or higher, the patient may qualify for future screening with alternating mammogram and breast MRI. Electronically signed and approved by: Jonnathan Orona M.D. Radiologis
== END | disposition home or self-care (01) ==
LOC: RADBDWWP 09:53
PROVIDERS: ATTEND Internal Medicine Hematology & Oncology
DX: Z12.31 Encounter for screening mammogram for malignant neoplasm of breast (principal); M85.89 Other specified disorders of bone density and structure, multiple sites; M81.0 Age-related osteoporosis without current pathological fracture; D05.11 Intraductal carcinoma in situ of right breast; Z71.3 Dietary counseling and surveillance; Z78.0 Asymptomatic menopausal state; Z85.3 Personal history of malignant neoplasm of breast
CPT/HCPCS: 77063; 77067; 77080

== ENCOUNTER → 2023-07-07 | Outpatient (CLI) | payer BC ==
--- NOTE | 2023-07-07 10:31 | P.PN ---
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 She subsequently underwent a symmetry procedure on the left side. At this time she is doing well. She is not complaining of any lumps masses or nodules of concern in either breast. Bilateral mammogram on 06-28-23 BIRAD 2. Personally reviewed. She finished a course of radiation therapy in the right breast and continues to follow with radiation oncology. She is presently on Exemestane she is tolerating this without difficulty. She has not noted any new lumps masses or nodules of concern in either breast. Note 10-01-22 medical oncology reviewed Caffeine: One pop per day Smoke: She smokes in the evening and is exposed to secondhand smoke chocolate: Occasional Hormones: Negative Family History: none Hormonal history: menarche: 15 , breast fed: no, first born at 27 periods regular BCP: 5 years, tubal-ligation done 23 years ago hormones:none Surgical History: 1. tubal-ligation 2. knee arthroscopic 3. bilateral breast surgery, right lumpectomy and SNB and left symmetry procedure Medial History: 1. rheumatoid arthritis Social History: smoke: at night alcohol: none drugs: none - Constitutional Constitutional: Denies chills, Denies fever - EENT Comment: wears glasses Eyes: denies blurred vision, denies pain Ears: deny: decreased hearing, tinnitus Ears, nose, mouth and throat: Denies headache, Denies sore throat - Breasts Breasts: bilateral: as per HPI - Cardiovascular Cardiovascular: Denies chest pain, Denies shortness of breath - Respiratory Respiratory: Denies cough - Gastrointestinal Gastrointestinal: Denies abdominal pain, Denies diarrhea, Denies nausea, Denies vomiting - Genitourinary (Female) Genitourinary: Denies dysuria, Denies hematuria - Menstruation Menstruation: Reports postmenopausal - Musculoskeletal Comment: arthritis - Integumentary Integumentary: Denies pruritus, Denies rash - Neurological Neurological: Denies numbness, Denies weakness - Psychiatric Psychiatric: Denies anxiety, Denies depression - Endocrine Endocrine: Denies fatigue, Denies weight change - Hematologic/Lymphatic Comment: none - Allergic/Immunologic Allergic/Immunologic: Reports as per HPI Objective - Constitutional General appearance: Present: cooperative - EENT Eyes: Present: EOMI ENT: Present: hearing grossly normal - Neck Neck: Present: normal ROM - Respiratory Respiratory: bilateral: CTA - Cardiovascular Heart sounds: normal: S1, S2 - Integumentary Integumentary: Present: normal turgor - Musculoskeletal Musculoskeletal: Present: gait normal - Psychiatric Psychiatric: Present: A&O x's 3, appropriate affect, intact judgment & insight - Additional findings Additional findings: Breast Exam: BRA: 34C inspection: bilateral grade 2 ptosis, well healed scar bilateral breast palpation: right breast: Multi-positional exam no dominant masses or nodules of concern Right axilla: No adenopathy of concern Left breast: Multi-positional exam fibrocystic changes no dominant masses or nodules of concern Left axilla: No adenopathy of concern Assessment and Plan Assessment: Impression: Fibrocystic breast changes bilateral No evidence of recurrent DCIS right breast bilateal mammogram on 06-28-23 BIRAD 2 Plan: Continue Exemestane/ follow with medical oncology Continue follow up with radiation oncology Follow-up here in 6 months Bilateral mammogram 1 year with physician exam at that time CC: Dr. Hollis
[2023-07-07 11:12] VITALS: BP 133/86; PULSE 61; RESP 16; TEMP 97.9
== END ==
LOC: WWCWWP 09:08
PROVIDERS: ATTEND Surgery
DX: N60.11 Diffuse cystic mastopathy of right breast (principal); F17.200 Nicotine dependence, unspecified, uncomplicated; Z88.5 Allergy status to narcotic agent; Z88.0 Allergy status to penicillin; Z91.048 Other nonmedicinal substance allergy status

== ENCOUNTER → 2023-08-05 | Outpatient (CLI) | payer BC ==
--- NOTE | 2023-08-05 13:33 | US ---
EXAMINATION TYPE: US venous doppler duplex LE RT DATE OF EXAM: 08/05/2023 12:30 PM COMPARISON: NONE CLINICAL INDICATION: Female, 57 years old with history of R22.41 SWELLING M79.661 PAIN IN RLE; Pt sta yaya pain right calf SIDE PERFORMED: Right TECHNIQUE: The lower extremity deep venous system is examined utilizing real time linear array sonog shaquille with graded compression, doppler sonography and color-flow sonography. VESSELS IMAGED: Common Femoral Vein Deep Femoral Vein Greater Saphenous Vein * Femoral Vein Popliteal Vein Small Saphenous Vein * Proximal Calf Veins (* superficial vessels) Right Leg: Negative for DVT, complex fluid collection right posterior calf in area of pt's pain= 5.4 x 0.9 x 3.0 cm ?etiology IMPRESSION: Grayscale, color doppler, spectral doppler imaging performed of the deep veins of the lo wer extremities. There is normal flow, compressibility, vascular waveforms.
== END | disposition home or self-care (01) ==
LOC: RADUSWWP 11:51
PROVIDERS: ATTEND Family Medicine
DX: R22.41 Localized swelling, mass and lump, right lower limb (principal); M79.661 Pain in right lower leg

== ENCOUNTER 2023-11-01 10:04 | Day surgery (SDC) | payer BC ==
[2023-10-26 09:55] VITALS: BMI 26.0
[~2023-11-01 10:04] MED LIST changes: -ALPRAZolam 0.5 MG TAB PO PRN; -DEXAMETHASONE SOD PHOSPHATE 4 MG/ML 1 ML VIAL IV ONE; -HEPARIN SODIUM,PORCINE 5,000 UNIT/ML 1 ML VIAL SQ PRN; -HYDROmorphone 0.5 MG/0.5 ML SYRINGE IVP PRN; -LACTATED RINGERS 1,000 ML IV SCH; -Pre Op ABX Message 1 EACH MISC MISCELLANE ONE
[2023-11-01] MEDS: IV FLUID CONTINUATION 1,000 ML IV ONE (10:29)
[2023-11-01] MEDS: LACTATED RINGERS 1,000 ML IV SCH (10:46)
[2023-11-01 10:50] VITALS: TEMP 97.5
[2023-11-01] MEDS ORDERED: LIDOCAINE 1% INJ 10MG/ML (20 ML MDV) ONE (11:13)
[2023-11-01] MEDS ORDERED: PROPOFOL 10 MG/ML 20 ML VIAL IV ONE (11:13)
--- NOTE | 2023-11-01 11:18 | P.GSHP ---
History of Present Illness H&P Date: 11/01/23 Chief Complaint: Abnormal stool test 57-year-old female here for colonoscopy. She has not had a colonoscopy before. No bowel complaints. Recent stool test was abnormal. Past Medical History Past Medical History: Cancer, Rheumatoid Arthritis (RA) Additional Past Medical History / Comment(s): RIGHT BREAST CANCER. Heartburn. History of Any Multi-Drug Resistant Organisms: None Reported Past Surgical History: Breast Surgery, Orthopedic Surgery, Tubal Ligation Additional Past Surgical History / Comment(s): Bilateral knee arthroscopy, right breast biospy.and lymph node removed, mastectomy. Past Anesthesia/Blood Transfusion Reactions: Motion Sickness Additional Past Anesthesia/Blood Transfusion Reaction / Comment(s): no blood transfusion Smoking Status: Current every day smoker - Past Family History Mother Family Medical History: No Reported History Medications and Allergies Home Medications Medication Instructions Recorded Confirmed Type Multivit with Calcium,Iron,Min 1 each PO QAM 09/27/19 11/01/23 History [Women's Multivitamin] Raloxifene [Evista] 60 mg PO HS 10/26/23 11/01/23 History Allergies Allergy/AdvReac Type Severity Reaction Status Date / Time codeine Allergy Rash/Hives Verified 11/01/23 10:35 Penicillins Allergy Anaphylaxis Verified 11/01/23 10:35 Surgical - Exam Vital Signs Temp Pulse Resp BP Pulse Ox 97.5 F L 77 16 115/65 98 11/01/23 10:40 11/01/23 10:40 11/01/23 10:40 11/01/23 10:40 11/01/23 10:40 Physical exam: General: Well-developed, well-nourished HEENT: Normocephalic, sclerae nonicteric Abdomen: Nontender, nondistended Extremities: No edema Neuro: Alert and oriented Assessment and Plan (1) Abnormal stool test Narrative/Plan: Will proceed with colonoscopy at this time. Current Visit: Yes Status: Acute Code(s): R19.5 - OTHER FECAL ABNORMALITIES SNOMED Code(s): 174855652
--- NOTE | 2023-11-01 11:46 | P.PCN ---
Date of Procedure: 11/01/23 Procedure(s) Performed: PREOPERATIVE DIAGNOSIS: Abnormal stool test POSTOPERATIVE DIAGNOSIS: Multiple polyps, diverticulosis PROCEDURE: Colonoscopy with snare polypectomy, clip placement x 2, spot injection ANESTHESIA: MAC SURGEON: Ramírez Sewell M.D. SPECIMENS: Polyps ENDOSCOPIC PROCEDURE: The patient was placed on the endoscopy table in the left decubitus position. The Olympus colonoscope was inserted into the anus and passed under direct visualization to the base of the cecum. The appendiceal maru fice was visualized. From that point the scope was slowly withdrawn inspecting all surfaces carefully. There were no neoplastic inflammatory or polypoid lesions throughout the cecum. In the ascending colon a small polyp was removed using the snare with cautery technique. There was a small amount of bleeding from the base of the polypectomy site and a clip was deployed. No further bleeding was seen. The remainder of the ascending transverse and descending colon appeared normal. In the sigmoid colon proximally at 28 cm there was a larger pedunculated polyp that was removed. The stalk itself appeared normal. A clip was used at the stalk given the large size of this polyp. I then injected with spot tattooing just at/distal to the polyp site. The remainder of the sigmoid colon was normal. In the rectum there were 2 small polyps removed using the snare with cautery technique. The patient had mild scattered diverticulosis. Digital rectal examination was normal. The patient was taken to the recovery room in stable condition per anesthesia guidelines. RECOMMENDATIONS: Await biopsy results. Repeat colonoscopy pending pathology results.
[2023-11-01 12:06] VITALS: RESP 16
[2023-11-01 12:15] VITALS: BP 123/77; PULSE 66
== END 2023-11-01 12:34 | disposition home or self-care (01) ==
LOC: ORWHC2ENDO 10:04
PROVIDERS: ATTEND Surgery
DX: D12.2 Benign neoplasm of ascending colon (principal); D12.5 Benign neoplasm of sigmoid colon; D12.8 Benign neoplasm of rectum; M06.9 Rheumatoid arthritis, unspecified; F17.200 Nicotine dependence, unspecified, uncomplicated; Z85.3 Personal history of malignant neoplasm of breast; Z88.0 Allergy status to penicillin; Z98.51 Tubal ligation status
CPT/HCPCS: 44404; 45382; 45385; 88305

== ENCOUNTER → 2024-03-22 | Outpatient (CLI) | payer BC ==
[2024-03-22 09:30] VITALS: BP 154/92; PULSE 91; RESP 17; TEMP 98.3
--- NOTE | 2024-03-22 10:11 | P.PN ---
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 She subsequently underwent a symmetry procedure on the left side. At this time she is doing well. She is not complaining of any lumps masses or nodules of concern in either breast. Bilateral mammogram on 06-28-23 BIRAD 2. personally reviewed at that time. She finished a course of radiation therapy in the right breast and continues to follow with radiation oncology. She is presently on Exemestane she is tolerating this without difficulty. She has not noted any new lumps masses or nodules of concern in either breast. Note 10-01-22 medical oncology reviewed on last visit Bone density 06-28-23 osteoporosis. Will follow with Dr. Zayas. Caffeine: One pop per day Smoke: She smokes in the evening and is exposed to secondhand smoke chocolate: Occasional Hormones: Negative Family History: none Hormonal history: menarche: 15 , breast fed: no, first born at 27 periods regular BCP: 5 years, tubal-ligation done 23 years ago hormones:none Surgical History: 1. tubal-ligation 2. knee arthroscopic 3. bilateral breast surgery, right lumpectomy and SNB and left symmetry procedure Medial History: 1. rheumatoid arthritis Social History: smoke: at night alcohol: none drugs: none - Constitutional Constitutional: Denies chills, Denies fever - EENT Comment: wears glasses Eyes: denies blurred vision, denies pain Ears: deny: decreased hearing, tinnitus Ears, nose, mouth and throat: Denies headache, Denies sore throat - Breasts Breasts: bilateral: as per HPI - Cardiovascular Cardiovascular: Denies chest pain, Denies shortness of breath - Respiratory Respiratory: Denies cough - Gastrointestinal Gastrointestinal: Denies abdominal pain, Denies diarrhea, Denies nausea, Denies vomiting - Genitourinary (Female) Genitourinary: Denies dysuria, Denies hematuria - Menstruation Menstruation: Reports postmenopausal - Musculoskeletal Comment: arthritis - Integumentary Integumentary: Denies pruritus, Denies rash - Neurological Neurological: Denies numbness, Denies weakness - Psychiatric Psychiatric: Denies anxiety, Denies depression - Endocrine Endocrine: Denies fatigue, Denies weight change - Hematologic/Lymphatic Comment: none - Allergic/Immunologic Allergic/Immunologic: Reports as per HPI Objective - Vital Signs Vital signs: Vital Signs Temp 98.3 F 03/22/24 09:28 Pulse 91 03/22/24 09:28 Resp 17 03/22/24 09:28 BP 154/92 03/22/24 09:28 Pulse Ox 98 03/22/24 09:28 FiO2 Intake & Output 03/21/24 03/22/24 03/22/24 18:59 06:59 18:59 Weight 68.039 kg - Constitutional General appearance: Present: cooperative - EENT Eyes: Present: EOMI ENT: Present: hearing grossly normal - Neck Neck: Present: normal ROM - Respiratory Respiratory: bilateral: CTA - Cardiovascular Rhythm: regular Heart sounds: normal: S1, S2 - Integumentary Integumentary: Present: normal turgor - Musculoskeletal Musculoskeletal: Present: gait normal - Psychiatric Psychiatric: Present: A&O x's 3, appropriate affect, intact judgment & insight - Additional findings Additional findings: Breast Exam: BRA: 34C inspection: bilateral grade 2 ptosis, well healed scar bilateral breast palpation: right breast: Multi-positional exam no dominant masses or nodules of concern Right axilla: No adenopathy of concern Left breast: Multi-positional exam fibrocystic changes no dominant masses or nodules of concern Left axilla: No adenopathy of concern fungal infection under both breast Assessment and Plan Assessment: Impression: Fibrocystic breast changes bilateral No evidence of recurrent DCIS right breast bilateal mammogram on 06-28-23 BIRAD 2 fungal infection under both breast Plan: Continue Exemestane/ follow with medical oncology Continue follow up with radiation oncology Bilateral mammogram June 2024 with physician exam at that time nystatin under breast as needed greater than 20 minutes spent reviewing patient records, examining patient and discussing treatment plan CC: Dr. Hollis
== END ==
LOC: WWCWWP 09:20
PROVIDERS: ATTEND Surgery
DX: R92.323 Mammographic fibroglandular density, bilateral breasts (principal); Z88.5 Allergy status to narcotic agent; Z88.0 Allergy status to penicillin; F17.210 Nicotine dependence, cigarettes, uncomplicated

== ENCOUNTER → 2024-06-28 | Outpatient (CLI) | payer BC ==
--- NOTE | 2024-06-28 10:54 | MM ---
Reason for Exam: Hx of breast cancer, conservation therapy. Last screening mammogram was performed 12 month(s) ago. Patient History: Menarche at age 15. First Full-Term at age 27. Postmenopausal. Breast cancer, right, age 54. Previous chest radiation therapy at age 54. 11/27/2019, Lumpectomy on the Right side. 11/27/2019, Malignant Core Biopsy on the right side. 09/21/2019, High risk Core Biopsy on the right side. 09/21/2019, Benign Core Biopsy on the right side. Radiation Therapy, right. Prior Study Comparison: 10/02/2020 Bilateral Diagnostic Mammogram, [facility]. 04/24/2021 Bilateral Diagnostic Mammogram, [facility]. 04/26/2022 Bilateral MG diagnostic mammo w CAD [place], [facility]. 06/28/2023 Bilateral MG 3D screening mammo w/cad, [facility]. Tissue Density: The breasts are heterogeneously dense, which may obscure small masses. Findings: Analyzed By CAD. Right breast surgical clips. No finding to correlate with palpable abnormality. Overall Assessment: Benign, BI-RAD 2 Management: Screening Mammogram of both breasts in 1 year. Results were given to the patient verbally at the time of exam. Patient should continue monthly self-breast exams. A clinical breast exam by your physician is recommended on an annual basis. This exam should not preclude additional follow-up of suspicious palpable abnormalities. Note on Gisela scores and lifetime risk: 1. A Gisela score greater than 3% is considered moderate risk. If this is the case, consider specialist referral to assess eligibility for a risk reducing agent. 2. If overall lifetime risk for the development of breast cancer is 20% or higher, the patient may qualify for future screening with alternating mammogram and breast MRI. [facility], , 06/28/2024 10:51 AM. Electronically signed and approved by: Manuel Grey DO
== END | disposition home or self-care (01) ==
LOC: RADMAMWWP 10:15
PROVIDERS: ATTEND Surgery
DX: R92.333 Mammographic heterogeneous density, bilateral breasts (principal); Z85.3 Personal history of malignant neoplasm of breast; Z78.0 Asymptomatic menopausal state
CPT/HCPCS: 77062; 77066

== ENCOUNTER → 2024-07-05 | Outpatient (CLI) | payer BC ==
[2024-07-05 09:51] VITALS: BP 103/73; PULSE 79; RESP 17; TEMP 98
--- NOTE | 2024-07-05 10:03 | P.PN ---
Subjective Progress Note Date: 07/05/24 Principal diagnosis: DCIS right breast 07-05-24 Principal diagnosis: DCIS of the right breast Right breast stage 0 cancer On 12-25-19 Martina underwent a right breast lumpectomy and sentinel node biopsy for stage 0 DCIS. She subsequently underwent a symmetry procedure on the left side. At this time she is doing well. She is not complaining of any lumps masses or nodules of concern in either breast. Bilateral mammogram on 06-28-24 BIRAD 2. She finished a course of radiation therapy in the right breast and continues to follow with radiation oncology. She is presently on Exemestane she is tolerating this without difficulty. She has not noted any new lumps masses or nodules of concern in either breast. Note 10-01-22 medical oncology reviewed on last visit Bone density 06-28-23 osteoporosis. Will follow with Dr. Zayas. Caffeine: One pop per day Smoke: She smokes in the evening and is exposed to secondhand smoke chocolate: Occasional Hormones: Negative Family History: none Hormonal history: menarche: 15 , breast fed: no, first born at 27 periods regular BCP: 5 years, tubal-ligation done 23 years ago hormones:none Surgical History: 1. tubal-ligation 2. knee arthroscopic 3. bilateral breast surgery, right lumpectomy and SNB and left symmetry procedure Medial History: 1. rheumatoid arthritis Social History: smoke: at night alcohol: none drugs: none - Constitutional Constitutional: Denies chills, Denies fever - EENT Comment: wears glasses Eyes: denies blurred vision, denies pain Ears: deny: decreased hearing, tinnitus Ears, nose, mouth and throat: Denies headache, Denies sore throat - Breasts Breasts: bilateral: as per HPI - Cardiovascular Cardiovascular: Denies chest pain, Denies shortness of breath - Respiratory Respiratory: Denies cough - Gastrointestinal Gastrointestinal: Denies abdominal pain, Denies diarrhea, Denies nausea, Denies vomiting - Genitourinary (Female) Genitourinary: Denies dysuria, Denies hematuria - Menstruation Menstruation: Reports postmenopausal - Musculoskeletal Comment: arthritis - Integumentary Integumentary: Denies pruritus, Denies rash - Neurological Neurological: Denies numbness, Denies weakness - Psychiatric Psychiatric: Denies anxiety, Denies depression - Endocrine Endocrine: Denies fatigue, Denies weight change - Hematologic/Lymphatic Comment: none - Allergic/Immunologic Allergic/Immunologic: Reports as per HPI Objective - Vital Signs Vital signs: Vital Signs Temp 98 F 07/05/24 09:47 Pulse 79 07/05/24 09:47 Resp 17 07/05/24 09:47 BP 103/73 07/05/24 09:47 Pulse Ox 96 07/05/24 09:47 FiO2 Intake & Output 07/04/24 07/05/24 07/05/24 18:59 06:59 18:59 Weight 68.039 kg - Constitutional General appearance: Present: cooperative - EENT Eyes: Present: EOMI ENT: Present: hearing grossly normal - Neck Neck: Present: normal ROM - Respiratory Respiratory: bilateral: CTA - Cardiovascular Rhythm: regular Heart sounds: normal: S1, S2 - Gastrointestinal General gastrointestinal: Present: soft - Integumentary Integumentary: Present: normal turgor - Musculoskeletal Musculoskeletal: Present: gait normal - Psychiatric Psychiatric: Present: A&O x's 3, appropriate affect, intact judgment & insight - Additional findings Additional findings: Breast Exam: BRA: 34C inspection: bilateral grade 2 ptosis, well healed scar bilateral breast palpation: right breast: Multi-positional exam no dominant masses or nodules of concern Right axilla: No adenopathy of concern Left breast: Multi-positional exam fibrocystic changes no dominant masses or nodules of concern Left axilla: No adenopathy of concern Assessment and Plan Assessment: Impression: Fibrocystic breast changes bilateral No evidence of recurrent DCIS right breast bilateral mammogram on 06-28-24 BIRAD 2 Plan: Continue Exemestane/ follow with medical oncology, may be able to stop soon Continue follow up with radiation oncology Bilateral mammogram June 2025 with physician exam at that time Additional CC's: Lupe Gross
== END ==
LOC: WWCWWP 09:36
PROVIDERS: ATTEND Surgery
DX: Z12.31 Encounter for screening mammogram for malignant neoplasm of breast (principal); N60.12 Diffuse cystic mastopathy of left breast; N60.11 Diffuse cystic mastopathy of right breast; F17.200 Nicotine dependence, unspecified, uncomplicated; Z88.0 Allergy status to penicillin; Z88.5 Allergy status to narcotic agent